=== PATIENT | female | born 1955 | race Caucasian/White ===

== ENCOUNTER 2016-09-23 20:27 | Emergency (ER) | payer OTHER ==
[~2016-09-23] VITALS: Ht 172.7 cm; Wt 58.9 kg
[~2016-09-23 20:27] MED LIST: AMOX1TAB64 PO; CANA100T PO; GABA300C10 PO; INSU100C SQ-INSULIN; INSU100I18 SQ-INSULIN; INSU100I28 SQ-INSULIN; INSU100V5 SQ-INSULIN; INSU100V8 SQ; LACT20SO13 PO; LEVO25TA2 PO; METF10002 PO; OXYC5CAP4 PO; PANT40TA5 PO; POTA20PA8 PO; RIFA550T PO; ZINC220C5 PO
[2016-09-23 20:45] VITALS: BP 112/68
[2016-09-23 22:31] LABS: ASPARTATE AMINO TRANSFERASE 19 U/L (15-37); BLOOD UREA NITROGEN 6 mg/dL (7-18)
[2016-09-23 22:43] LABS: DIFF TOTAL CELLS COUNTED 100 CELL DIFF
[2016-09-23 22:46] LABS: VERIFY COUNTS? YES
[2016-09-23 22:47] LABS: ANISOCYTOSIS 1+; MICROCYTOSIS 2+; OVALOCYTES 1+
[2016-09-23 22:48] LABS: POLYCHROMASIA 1+
== END 2016-09-24 00:22 | disposition left against medical advice (07) ==
LOC: ED 23:59
DX: G89.29 Other chronic pain (principal); R10.84 Generalized abdominal pain; R19.7 Diarrhea, unspecified; D64.9 Anemia, unspecified; E07.9 Disorder of thyroid, unspecified; E11.9 Type 2 diabetes mellitus without complications; K74.60 Unspecified cirrhosis of liver
CPT/HCPCS: 36415; 80053; 83690; 85025; 85610; 99284

== ENCOUNTER 2016-09-24 17:40 | Emergency (ER) | payer OTHER ==
[2016-09-24] VITALS (9 sets, daily range): BP systolic 94–104; BP diastolic 45–59
[~2016-09-24] VITALS: Ht 172.7 cm; Wt 58.2 kg
[2016-09-24] MEDS ORDERED: SODIUM CHLORIDE 0.9% 1,000 ML IV ONE (18:22)
[2016-09-24] MEDS ORDERED: PANTOPRAZOLE 80 MG in SODIUM CHLORIDE 0.9% 100 ML IV SCH (18:22)
[2016-09-24] MEDS ORDERED: PANTOPRAZOLE 80 MG in SODIUM CHLORIDE 0.9% 50 ML IVPB ONE (18:22)
[2016-09-24] MEDS ORDERED: SODIUM CHLORIDE FLUSH 10ML SYR IVF ONE (18:30)
[2016-09-24 18:51] LABS: BLOOD UREA NITROGEN 8 mg/dL (7-18)
[2016-09-24 18:54] LABS: ASPARTATE AMINO TRANSFERASE 21 U/L (15-37)
[2016-09-24 19:15] LABS: ANISOCYTOSIS 1+; HYPOCHROMIA 2+; MICROCYTOSIS 3+; POLYCHROMASIA 1+
[2016-09-24 19:16] LABS: ACANTHOCYTES 1+
[2016-09-24 19:17] LABS: LARGE PLATELETS 1+; OVALOCYTES 2+
[2016-09-24] MEDS ORDERED: PANTOPRAZOLE 40 MG IV IVP ONE (19:30)
[2016-09-24] MEDS ORDERED: IBUPROFEN 200 MG TABLET ONE (19:32)
[2016-09-24] MEDS ORDERED: PANTOPRAZOLE 40 MG IV ONE (19:44)
[2016-09-24] MEDS ORDERED: INSULIN REGULAR 100 UNITS/ML, 3ML VIAL ONE (19:46)
[2016-09-24] MEDS ORDERED: INSULIN REGULAR 100 UNITS/ML, 3ML VIAL SQ-INSULIN ONE (20:00)
[2016-09-24] MEDS ORDERED: IBUPROFEN 200 MG TABLET PO ONE (20:00)
[2016-09-24] MEDS ORDERED: OMNIPAQUE 350 MG/ML, 100ML BOTTLE ONE (23:24)
== END 2016-09-24 22:44 | disposition home or self-care (01) ==
LOC: ED 19:20
DX: R10.13 Epigastric pain (principal); R11.2 Nausea with vomiting, unspecified; R19.7 Diarrhea, unspecified; D50.9 Iron deficiency anemia, unspecified; E11.65 Type 2 diabetes mellitus with hyperglycemia
CPT/HCPCS: 36415; 74177; 80053; 80307; 82140; 83690; 85025; 85610; 85730; 86850; 86900; 86923; 96372; 96374; 99285; C9113; P9016; Q9967

== ENCOUNTER 2016-12-28 11:52 | Inpatient (IN) | payer OTHER ==
[~2016-12-28] VITALS: Ht 170.2 cm; Wt 61.8 kg
[~2016-12-28 11:52] MED LIST changes: +OXYC5CAP2 PO; -OXYC5CAP4 PO; +POTA20PA25 PO; -POTA20PA8 PO; -RIFA550T PO; +RIFA550T4 PO
[2016-12-28] MEDS ORDERED: ASPIRIN 81 MG TABLET CHEW PO ONE (12:30)
[2016-12-28] MEDS ORDERED: SODIUM CHLORIDE 0.9% 1,000ML IVBOLUS ONE ×3 (12:30→22:30)
[2016-12-28] MEDS ORDERED: SODIUM CHLORIDE FLUSH 10ML SYR IVF ONE (12:30)
[2016-12-28] MEDS ORDERED: ASPIRIN 81 MG TABLET CHEW ONE (12:36)
[2016-12-28 12:53] LABS: HEMATOCRIT 26.8 % (34.6-47.8); WHITE BLOOD COUNT 3.4 x10^3/uL (3.4-10)
[2016-12-28 13:01] LABS: BLOOD UREA NITROGEN 18 mg/dL (7-18)
[2016-12-28 13:02] LABS: ASPARTATE AMINO TRANSFERASE 17 U/L (15-37)
[2016-12-28] MEDS ORDERED: SPIR50TA2 PO (13:03)
[2016-12-28 13:06] LABS: IS PT STATUS REG ER OR PRE ER? YES
[2016-12-28 13:13] LABS: ANISOCYTOSIS 1+; HYPOCHROMIA 1+; MICROCYTOSIS 2+
[2016-12-28 13:14] LABS: OVALOCYTES 1+
[2016-12-28 15:10] LABS: PH, VENOUS 7.429 pH (7.320-7.420)
[2016-12-28] MEDS ORDERED: SODIUM CHLORIDE 0.9% 1,000 ML IV ONE (16:28)
[2016-12-28] MEDS ORDERED: SODIUM CHLORIDE FLUSH 10ML SYR IVF PRN (16:30)
[2016-12-28] MEDS ORDERED: ONDANSETRON 2MG/ML, 2ML IVPush PRN (17:00)
[2016-12-28] MEDS ORDERED: INSULIN ASPART 100 UNITS/ML, PEN SQ-INSULIN SCH ×2 (17:00→19:30)
[2016-12-28 17:30] LABS: ASPARTATE AMINO TRANSFERASE 14 U/L (15-37); BLOOD UREA NITROGEN 15 mg/dL (7-18)
[2016-12-28 17:47] LABS: HEMATOCRIT 22.2 % (34.6-47.8); HEMOGLOBIN 6.6 g/dL (11.7-16.4); WHITE BLOOD COUNT 2.6 x10^3/uL (3.4-10)
[2016-12-28] MEDS: INSULIN ASPART 100 UNITS/ML, PEN SQ-INSULIN SCH ×2 (17:52→22:14)
[2016-12-28 17:57] LABS: ANISOCYTOSIS 1+; HYPOCHROMIA 1+; MICROCYTOSIS 2+; OVALOCYTES 1+
[2016-12-28 17:58] LABS: POLYCHROMASIA 1+
[2016-12-28 18:47] VITALS: BP 107/39
[2016-12-28] MEDS: LACTULOSE 20 GM/30 ML UDC PO SCH (19:46)
[2016-12-28] MEDS: RIFAXIMIN 550 MG TABLET PO SCH (19:46)
[2016-12-28] MEDS: POTASSIUM PHOSPHATE IV SCH (19:47)
[2016-12-28] MEDS: SODIUM CHLORIDE 0.9% IV SCH (19:47)
[2016-12-28] MEDS: POTASSIUM CHLORIDE IV SCH (19:47)
[2016-12-28] MEDS ORDERED: INSULIN ASPART 100 UNITS/ML, PEN SQ-INSULIN ONE ×2 (20:00→20:30)
[2016-12-28 20:38] VITALS: BP 98/52
[2016-12-28] MEDS ORDERED: INSULIN DETEMIR 100 UNITS/ML, PEN SQ-INSULIN SCH (21:00)
[2016-12-28 21:10] VITALS: BP 91/48
[2016-12-28 23:00] VITALS: BP 94/52
[2016-12-28 23:44] VITALS: BP 98/50
[2016-12-29] VITALS (10 sets, daily range): BP systolic 93–111; BP diastolic 45–63
[2016-12-29] MEDS ORDERED: INSULIN ASPART 100 UNITS/ML, PEN SQ-INSULIN SCH ×5 (01:30→17:30)
[2016-12-29 05:27] LABS: BLOOD UREA NITROGEN 13 mg/dL (7-18)
[2016-12-29 05:29] LABS: HEMATOCRIT 27.8 % (34.6-47.8); HEMOGLOBIN 8.7 g/dL (11.7-16.4); WHITE BLOOD COUNT 3.6 x10^3/uL (3.4-10)
[2016-12-29] MEDS: LACTULOSE 20 GM/30 ML UDC PO SCH ×4 (05:47→21:26)
[2016-12-29] MEDS: LEVOTHYROXINE 25 MCG TABLET PO SCH (05:47)
[2016-12-29 06:12] LABS: DIFF TOTAL CELLS COUNTED 100 CELL DIFF
[2016-12-29 06:15] LABS: ANISOCYTOSIS 1+; HYPOCHROMIA 1+; MICROCYTOSIS 2+; OVALOCYTES 1+; POLYCHROMASIA 1+; VERIFY COUNTS? YES
[2016-12-29 06:18] LABS: SPHEROCYTES 1+
[2016-12-29] MEDS: INSULIN ASPART 100 UNITS/ML, PEN SQ-INSULIN SCH ×4 (08:10→21:00)
[2016-12-29] MEDS: RIFAXIMIN 550 MG TABLET PO SCH ×2 (08:10→21:26)
[2016-12-29] MEDS: INSULIN DETEMIR 100 UNITS/ML, PEN SQ-INSULIN SCH ×2 (11:52→17:35)
[2016-12-29] MEDS ORDERED: SODIUM CHLORIDE 0.9% 1,000 ML IV SCH (17:30)
[2016-12-29 17:50] LABS: IS PT STATUS REG ER OR PRE ER? NO
[2016-12-29] MEDS ORDERED: OMNIPAQUE 350 MG/ML, 100ML BOTTLE ONE (18:27)
[2016-12-29] MEDS ORDERED: INSULIN ASPART 100 UNITS/ML, PEN SQ-INSULIN ONE ×3 (21:00→21:30)
[2016-12-30 01:07] VITALS: BP 117/39
[2016-12-30] MEDS: POTASSIUM CHLORIDE IV SCH (01:50)
[2016-12-30] MEDS: SODIUM CHLORIDE 0.9% IV SCH (01:50)
[2016-12-30] MEDS: POTASSIUM PHOSPHATE IV SCH (01:50)
[2016-12-30] MEDS: LACTULOSE 20 GM/30 ML UDC PO SCH ×4 (05:56→21:16)
[2016-12-30] MEDS: LEVOTHYROXINE 25 MCG TABLET PO SCH (05:56)
[2016-12-30] MEDS: INSULIN DETEMIR 100 UNITS/ML, PEN SQ-INSULIN SCH (06:28)
[2016-12-30 06:31] LABS: OCCBLD OBC PASS
[2016-12-30 08:23] VITALS: BP 108/62
[2016-12-30] MEDS ORDERED: INSULIN ASPART 100 UNITS/ML, PEN SQ-INSULIN ONE ×4 (08:30→22:00)
[2016-12-30] MEDS: INSULIN ASPART 100 UNITS/ML, PEN SQ-INSULIN SCH ×4 (08:45→21:00)
[2016-12-30] MEDS: RIFAXIMIN 550 MG TABLET PO SCH ×2 (08:45→21:16)
[2016-12-30 09:29] LABS: HEMATOCRIT 29.7 % (34.6-47.8); HEMOGLOBIN 9.2 g/dL (11.7-16.4)
[2016-12-30 09:38] LABS: BLOOD UREA NITROGEN 7 mg/dL (7-18)
[2016-12-30 09:44] LABS: WHITE BLOOD COUNT 6.8 x10^3/uL (3.4-10)
[2016-12-30 09:47] LABS: ANISOCYTOSIS 1+
[2016-12-30 09:48] LABS: HYPOCHROMIA 1+; MICROCYTOSIS 2+; OVALOCYTES 1+; POLYCHROMASIA 1+
[2016-12-30 13:27] VITALS: BP 105/62
[2016-12-30] MEDS: OXYcodone IR 5MG TABLET PO PRN ×2 (16:50→22:50)
[2016-12-30] MEDS ORDERED: INSULIN DETEMIR 100 UNITS/ML, PEN SQ-INSULIN SCH (18:00)
[2016-12-30 20:00] VITALS: BP 107/55
[2016-12-30] MEDS: SPIRONOLACTONE 50 MG TABLET PO SCH (21:16)
[2016-12-31 00:59] VITALS: BP 102/56
[2016-12-31] MEDS: SODIUM CHLORIDE 0.9% IV SCH (01:28)
[2016-12-31] MEDS: POTASSIUM CHLORIDE IV SCH (01:28)
[2016-12-31] MEDS: POTASSIUM PHOSPHATE IV SCH (01:28)
[2016-12-31 06:25] LABS: BLOOD UREA NITROGEN 4 mg/dL (7-18)
[2016-12-31] MEDS: LEVOTHYROXINE 25 MCG TABLET PO SCH (06:40)
[2016-12-31] MEDS: LACTULOSE 20 GM/30 ML UDC PO SCH ×4 (06:40→20:28)
[2016-12-31] MEDS: INSULIN DETEMIR 100 UNITS/ML, PEN SQ-INSULIN SCH ×2 (06:41→17:30)
[2016-12-31] MEDS: INSULIN ASPART 100 UNITS/ML, PEN SQ-INSULIN SCH ×4 (07:00→21:00)
[2016-12-31 08:00] VITALS: BP 110/68
[2016-12-31] MEDS: RIFAXIMIN 550 MG TABLET PO SCH ×2 (08:18→20:29)
[2016-12-31] MEDS: FUROSEMIDE 40 MG TABLET PO SCH (08:19)
[2016-12-31] MEDS: SPIRONOLACTONE 50 MG TABLET PO SCH ×2 (08:19→20:28)
[2016-12-31] MEDS ORDERED: INSULIN ASPART 100 UNITS/ML, PEN SQ-INSULIN ONE ×4 (08:30→21:30)
[2016-12-31] MEDS: OXYcodone IR 5MG TABLET PO PRN ×2 (12:24→20:29)
[2016-12-31 13:26] VITALS: BP 107/57
[2016-12-31] MEDS ORDERED: INSULIN DETEMIR 100 UNITS/ML, PEN SQ-INSULIN SCH (18:00)
[2016-12-31 19:50] VITALS: BP 108/60
[2016-12-31] MEDS ORDERED: HYDROCORTISONE OINT 1%, 28GM TP PRN (21:30)
[2017-01-01 03:15] VITALS: BP 102/60
[2017-01-01 05:07] LABS: BLOOD UREA NITROGEN 5 mg/dL (7-18)
[2017-01-01] MEDS: LACTULOSE 20 GM/30 ML UDC PO SCH ×2 (06:06→11:51)
[2017-01-01] MEDS: LEVOTHYROXINE 25 MCG TABLET PO SCH (06:31)
[2017-01-01] MEDS: INSULIN DETEMIR 100 UNITS/ML, PEN SQ-INSULIN SCH (06:32)
[2017-01-01] MEDS: OXYcodone IR 5MG TABLET PO PRN (06:41)
[2017-01-01] MEDS: INSULIN ASPART 100 UNITS/ML, PEN SQ-INSULIN SCH ×2 (07:00→11:00)
[2017-01-01 07:52] VITALS: BP 105/64
[2017-01-01] MEDS: RIFAXIMIN 550 MG TABLET PO SCH (09:01)
[2017-01-01] MEDS: FUROSEMIDE 40 MG TABLET PO SCH (09:02)
[2017-01-01] MEDS: SPIRONOLACTONE 50 MG TABLET PO SCH (09:02)
[2017-01-01] MEDS ORDERED: FURO40TA6 PO (14:05)
[2017-01-01] MEDS ORDERED: INSU100I28 SQ-INSULIN (14:05)
[2017-01-01] MEDS ORDERED: INSU100C SQ-INSULIN (14:05)
[2017-01-01 14:18] VITALS: BP 94/50
== END 2017-01-01 16:05 | disposition home or self-care (01) | DRG 637 ==
LOC: ED 13:37 → EDIP 16:49 → 4WST 18:01
PROVIDERS: ADMIT Internal Medicine; ATTEND Internal Medicine
PROC: 30233N1 Transfusion of Nonautologous Red Blood Cells into Peripheral Vein, Percutaneous Approach (ICD-10-PCS; principal; 2016-12-28)
DX: E11.65 Type 2 diabetes mellitus with hyperglycemia (principal); E43 Unspecified severe protein-calorie malnutrition; K72.00 Acute and subacute hepatic failure without coma; K74.60 Unspecified cirrhosis of liver; E03.9 Hypothyroidism, unspecified; D50.9 Iron deficiency anemia, unspecified; Z68.21 Body mass index [BMI] 21.0-21.9, adult; Z90.710 Acquired absence of both cervix and uterus; Z91.018 Allergy to other foods
CPT/HCPCS: 36415; 71020; 71275; 80048; 80053; 81003; 82010; 82140; 82272; 82803; 82947; 82962; 83036; 83735; 84100; 84443; 84484; 85025; 85610; 86850; 86900; 86923; 93005; 96360; 96361; J1815; J3480; Q9967; J7030; P9016

== ENCOUNTER 2017-05-07 14:50 | Emergency (ER) | payer OTHER ==
[~2017-05-07] VITALS: Ht 170.2 cm; Wt 65.0 kg
[~2017-05-07 14:50] MED LIST changes: +FURO40TA6 PO; +SPIR50TA2 PO
[2017-05-07 14:57] VITALS: BP 98/60
== END 2017-05-07 18:38 ==
LOC: ED 15:00
DX: Z53.21 Procedure and treatment not carried out due to patient leaving prior to being seen by health care provider (principal)

== ENCOUNTER 2017-05-12 19:49 | Inpatient (IN) | payer OTHER ==
[~2017-05-12] VITALS: Ht 172.7 cm; Wt 74.3 kg
[2017-05-12 20:32] LABS: ALANINE AMINOTRANSFERASE 23 U/L (12-78); ALBUMIN 2.5 g/dL (3.4-5.0); ANION GAP 12 mmol/L (5-15); CALCIUM 8.3 mg/dL (8.5-10.1); CHLORIDE 97 mmol/L (98-107); CREATININE 1.07 mg/dL (0.55-1.02); MEAN CORPUSCULAR HEMOGLOBIN 18.7 pg (27.0-34.8); MEAN CORPUSCULAR HGB CONC 30.2 g/dL (32.4-35.8); MEAN CORPUSCULAR VOLUME 61.8 fL (80-100); MEAN PLATELET VOLUME 7.9 fL (7.4-10.4); PLATELET COUNT 168 x10^3/uL (130-400); RED BLOOD COUNT 2.88 x10^6/uL (3.82-5.3); RED CELL DISTRIBUTION WIDTH 21.7 % (9.6-15.2)
[2017-05-12 20:37] LABS: ALKALINE PHOSPHATASE 95 U/L (45-117); BILIRUBIN,TOTAL 1.9 mg/dL (0.2-1.0); TOTAL PROTEIN 6.5 g/dL (6.4-8.2); TROPONIN I < 0.015 ng/mL (0.000-0.045)
[2017-05-12] MEDS ORDERED: DEXTROSE 50%, 50ML SYRINGE ONE (20:43)
[2017-05-12] MEDS ORDERED: DEXTROSE 50%, 50ML SYRINGE IVPush ONE (21:00)
[2017-05-12 21:05] LABS: INTERNATIONAL NORMALIZED RATIO 1.49 (0.93-1.1); PROTHROMBIN TIME 15.4 Seconds (9.6-11.5)
[2017-05-12 21:21] LABS: BASOPHILS # (AUTO) 0.02 x10^3/uL (0-0.1); BASOPHILS % (AUTO) 0 % (0-1); EOSINOPHILS % (AUTO) 0 % (1-7); HEMOGRAM NOTE RECHECKED; LYMPHOCYTES # (AUTO) 0.78 x10^3/uL (1-3.4); LYMPHOCYTES % (AUTO) 13 % (22-44); MD MORPH REVIEW ONLY; MONOCYTES # (AUTO) 0.77 x10^3/uL (0.2-0.8); MONOCYTES % (AUTO) 13 % (2-9); NEUTROPHILS % (AUTO) 75 % (42-75)
[2017-05-12 21:24] LABS: <PLATELET ESTIMATE> ADEQUATE; ANISOCYTOSIS 2+; BASOPHILLIC STIPPLING 1+; HYPOCHROMIA 1+; MICROCYTOSIS 2+; OVALOCYTES 1+; POLYCHROMASIA 1+
[2017-05-12 21:25] LABS: <PLT MORPHOLOGY> NORMAL PLT MORPH
[2017-05-12] MEDS ORDERED: POTASSIUM CHLORIDE 20 MEQ TAB.ER.PRT PO ONE (21:30)
[2017-05-12] MEDS ORDERED: POTASSIUM CHLORIDE 20 MEQ TAB.ER.PRT ONE (21:45)
[2017-05-12] MEDS ORDERED: ONDANSETRON 2MG/ML, 2ML IVPush PRN (23:30)
[2017-05-12] MEDS ORDERED: DIPHENHYDRAMINE 50 MG/ML, 1ML ONE (23:37)
[2017-05-12] MEDS ORDERED: ONDANSETRON 2MG/ML, 2ML ONE (23:37)
[2017-05-13] VITALS (8 sets, daily range): BP systolic 95–106; BP diastolic 49–66
[2017-05-13] MEDS ORDERED: DIPHENHYDRAMINE 50 MG/ML, 1ML IVPush ONE
[2017-05-13] MEDS ORDERED: ONDANSETRON 2MG/ML, 2ML IVPush ONE
[2017-05-13] MEDS ORDERED: SODIUM CHLORIDE 0.9% 1,000 ML IV SCH (00:04)
[2017-05-13] MEDS ORDERED: DEXTROSE 50%, 50ML SYRINGE ONE (00:22)
[2017-05-13] MEDS ORDERED: BISACODYL 10 MG SUPP PR PRN (00:30)
[2017-05-13] MEDS ORDERED: D5%-0.9% NACL 1,000 ML IV SCH (00:30)
[2017-05-13] MEDS ORDERED: POLYETHYLENE GLYCOL 17 GM PACKET PO PRN (00:30)
[2017-05-13] MEDS ORDERED: ONDANSETRON 2MG/ML, 2ML IVPush PRN (00:30)
[2017-05-13] MEDS: LACTULOSE 20 GM/30 ML UDC PO SCH ×5 (00:30→20:12)
[2017-05-13] MEDS ORDERED: DEXTROSE 10% 1,000 ML IV SCH (01:00)
[2017-05-13] MEDS ORDERED: DEXTROSE 50%, 50ML SYRINGE IVPush ONE (01:30)
[2017-05-13 04:34] LABS: CULTURE INDICATED? YES; MICROSCOPIC INDICATED
[2017-05-13] MEDS ORDERED: GLUCAGON 1 MG ONE (04:35)
[2017-05-13 04:59] LABS: MEAN CORPUSCULAR HEMOGLOBIN 21.5 pg (27.0-34.8); MEAN CORPUSCULAR HGB CONC 31.3 g/dL (32.4-35.8); MEAN CORPUSCULAR VOLUME 68.5 fL (80-100); MEAN PLATELET VOLUME 7.7 fL (7.4-10.4); PLATELET COUNT 113 x10^3/uL (130-400); RED BLOOD COUNT 3.22 x10^6/uL (3.82-5.3); RED CELL DISTRIBUTION WIDTH 26.4 % (9.6-15.2)
[2017-05-13] MEDS ORDERED: GLUCAGON 1 MG IVPush PRN (05:00)
[2017-05-13 05:07] LABS: ALANINE AMINOTRANSFERASE 22 U/L (12-78); ALBUMIN 2.2 g/dL (3.4-5.0); ANION GAP 6 mmol/L (5-15); CALCIUM 8.1 mg/dL (8.5-10.1); CHLORIDE 98 mmol/L (98-107); CREATININE 0.99 mg/dL (0.55-1.02)
[2017-05-13 05:11] LABS: ALKALINE PHOSPHATASE 88 U/L (45-117); BILIRUBIN,TOTAL 2.9 mg/dL (0.2-1.0); TOTAL PROTEIN 5.9 g/dL (6.4-8.2); TROPONIN I 0.019 ng/mL (0.000-0.045)
[2017-05-13 05:53] LABS: MD YES
[2017-05-13 05:54] LABS: EOS#(MANUAL) 0.14 x10^3/uL (0.0-0.4); EOS% (MANUAL) 3 % (1-7); LYMPH#(MANUAL) 0.63 x10^3/uL (1-3.4); LYMPHS% (MANUAL) 14 % (22-44); MONOS#(MANUAL) 0.18 x10^3/uL (0.3-2.7); MONOS% (MANUAL) 4 % (2-9); NRBC % (MANUAL) 1 % (0-1); SEG#(MANUAL) 3.56 x10^3/uL (1.8-6.8); SEGS% (MANUAL) 79 % (42-75)
[2017-05-13 05:55] LABS: ANISOCYTOSIS 2+; MICROCYTOSIS 2+; POLYCHROMASIA 1+
[2017-05-13 05:56] LABS: <PLATELET ESTIMATE> DECREASED; <PLT MORPHOLOGY> NORMAL PLT MORPH
[2017-05-13] MEDS: LEVOTHYROXINE 50 MCG TABLET PO SCH (06:19)
[2017-05-13] MEDS ORDERED: POTASSIUM CHLORIDE 20 MEQ PACKET PO SCH (08:00)
[2017-05-13] MEDS: ZINC SULFATE 220 MG CAPSULE PO SCH (08:50)
[2017-05-13] MEDS: RIFAXIMIN 550 MG TABLET PO SCH ×2 (08:50→20:12)
[2017-05-13] MEDS: FERROUS SULFATE 325 MG TABLET PO SCH ×2 (08:50→16:22)
[2017-05-13] MEDS: SPIRONOLACTONE 50 MG TABLET PO SCH ×2 (08:51→20:12)
[2017-05-13] MEDS: SENNA/DOCUSATE TABLET PO SCH (08:51)
[2017-05-13] MEDS: ACETAMINOPHEN 325 MG TABLET PO PRN (15:10)
[2017-05-13] MEDS: INSULIN ASPART 100 UNITS/ML, PEN SQ-INSULIN SCH ×2 (17:34→21:57)
[2017-05-13] MEDS: SODIUM CHLORIDE 0.9% 1,000 ML IV SCH (17:35)
[2017-05-14] VITALS (11 sets, daily range): BP systolic 79–99; BP diastolic 38–58
[2017-05-14] MEDS: INSULIN ASPART 100 UNITS/ML, PEN SQ-INSULIN SCH ×6 (01:26→21:00)
[2017-05-14] MEDS: SODIUM CHLORIDE 0.9% 1,000 ML IV SCH (01:26)
[2017-05-14] MEDS: ACETAMINOPHEN 325 MG TABLET PO PRN (01:29)
[2017-05-14] MEDS: LACTULOSE 20 GM/30 ML UDC PO SCH ×4 (05:20→19:27)
[2017-05-14] MEDS: LEVOTHYROXINE 50 MCG TABLET PO SCH (05:20)
[2017-05-14 05:56] LABS: MEAN CORPUSCULAR HEMOGLOBIN 22.2 pg (27.0-34.8); MEAN CORPUSCULAR HGB CONC 31.5 g/dL (32.4-35.8); MEAN CORPUSCULAR VOLUME 70.5 fL (80-100); MEAN PLATELET VOLUME 9.6 fL (7.4-10.4); PLATELET COUNT 117 x10^3/uL (130-400); RED BLOOD COUNT 3.28 x10^6/uL (3.82-5.3); RED CELL DISTRIBUTION WIDTH 27.5 % (9.6-15.2)
[2017-05-14 06:29] LABS: BASOPHILS # (AUTO) 0.01 x10^3/uL (0-0.1); BASOPHILS % (AUTO) 0 % (0-1); EOSINOPHILS % (AUTO) 0 % (1-7); LYMPHOCYTES # (AUTO) 0.44 x10^3/uL (1-3.4); LYMPHOCYTES % (AUTO) 5 % (22-44); MD MORPH REVIEW ONLY; MONOCYTES # (AUTO) 0.55 x10^3/uL (0.2-0.8); MONOCYTES % (AUTO) 6 % (2-9); NEUTROPHILS % (AUTO) 89 % (42-75)
[2017-05-14 06:30] LABS: ANISOCYTOSIS 2+; MICROCYTOSIS 1+; OVALOCYTES 1+; POLYCHROMASIA 1+; SCHISTOCYTES 1+; TARGET CELLS 1+
[2017-05-14 06:31] LABS: <PLATELET ESTIMATE> DECREASED; <PLT MORPHOLOGY> NORMAL PLT MORPH; HYPOCHROMIA 1+
[2017-05-14] MEDS: ZINC SULFATE 220 MG CAPSULE PO SCH (09:18)
[2017-05-14] MEDS: SENNA/DOCUSATE TABLET PO SCH (09:19)
[2017-05-14] MEDS: RIFAXIMIN 550 MG TABLET PO SCH ×2 (09:19→19:27)
[2017-05-14] MEDS: SPIRONOLACTONE 50 MG TABLET PO SCH ×2 (09:19→19:27)
[2017-05-14] MEDS: FERROUS SULFATE 325 MG TABLET PO SCH (09:19)
[2017-05-14] MEDS ORDERED: INSULIN ASPART 100 UNITS/ML, PEN SQ-INSULIN ONE (09:30)
[2017-05-14] MEDS: INSULIN DETEMIR 100 UNITS/ML, PEN SQ-INSULIN SCH ×2 (11:13→21:00)
[2017-05-14] MEDS: NS + 20MEQ KCL 1,000 ML IV SCH (15:53)
[2017-05-14] MEDS: IRON SUCROSE COMPLEX 100MG/5ML IV SCH (15:53)
[2017-05-15] MEDS: INSULIN ASPART 100 UNITS/ML, PEN SQ-INSULIN SCH ×3 (01:00→09:50)
[2017-05-15] MEDS: NS + 20MEQ KCL 1,000 ML IV SCH (01:22)
[2017-05-15 02:43] VITALS: BP 95/53
[2017-05-15] MEDS: LACTULOSE 20 GM/30 ML UDC PO SCH ×2 (05:21→11:07)
[2017-05-15] MEDS: LEVOTHYROXINE 50 MCG TABLET PO SCH (05:21)
[2017-05-15 05:32] LABS: MEAN CORPUSCULAR HGB CONC 31.6 g/dL (32.4-35.8); MEAN CORPUSCULAR VOLUME 72.7 fL (80-100); MEAN PLATELET VOLUME 8.5 fL (7.4-10.4); PLATELET COUNT 115 x10^3/uL (130-400); RED CELL DISTRIBUTION WIDTH 27.6 % (9.6-15.2)
[2017-05-15 05:39] LABS: ALANINE AMINOTRANSFERASE 24 U/L (12-78); ALBUMIN 2.1 g/dL (3.4-5.0); ANION GAP 8 mmol/L (5-15); CALCIUM 7.9 mg/dL (8.5-10.1); CHLORIDE 103 mmol/L (98-107); CREATININE 1.14 mg/dL (0.55-1.02)
[2017-05-15 05:42] LABS: ALKALINE PHOSPHATASE 87 U/L (45-117); BILIRUBIN,TOTAL 2.9 mg/dL (0.2-1.0); TOTAL PROTEIN 5.5 g/dL (6.4-8.2)
[2017-05-15 05:56] LABS: BASOPHILS # (AUTO) 0.03 x10^3/uL (0-0.1); BASOPHILS % (AUTO) 1 % (0-1); EOSINOPHILS % (AUTO) 0 % (1-7); LYMPHOCYTES # (AUTO) 0.56 x10^3/uL (1-3.4); LYMPHOCYTES % (AUTO) 9 % (22-44); MD SCAN; MONOCYTES # (AUTO) 0.55 x10^3/uL (0.2-0.8); MONOCYTES % (AUTO) 9 % (2-9); NEUTROPHILS # (AUTO) 4.87 x10^3/uL (1.8-6.8); NEUTROPHILS % (AUTO) 81 % (42-75)
[2017-05-15] MEDS: ACETAMINOPHEN 325 MG TABLET PO PRN (07:50)
[2017-05-15 08:08] VITALS: BP 91/45
[2017-05-15] MEDS: INSULIN DETEMIR 100 UNITS/ML, PEN SQ-INSULIN SCH (09:27)
[2017-05-15] MEDS: SPIRONOLACTONE 50 MG TABLET PO SCH (09:28)
[2017-05-15] MEDS: SENNA/DOCUSATE TABLET PO SCH (09:29)
[2017-05-15] MEDS: IRON SUCROSE COMPLEX 100MG/5ML IV SCH (09:49)
[2017-05-15] MEDS: ZINC SULFATE 220 MG CAPSULE PO SCH (09:49)
[2017-05-15] MEDS: RIFAXIMIN 550 MG TABLET PO SCH (09:49)
[2017-05-15] MEDS ORDERED: INSULIN DETEMIR 100 UNITS/ML, PEN SQ-INSULIN SCH ×2 (10:00→21:00)
[2017-05-15] MEDS ORDERED: INSU100I28 SQ-INSULIN (11:08)
[2017-05-15] MEDS ORDERED: FERR-36 PO (11:09)
[2017-05-15 12:37] VITALS: BP 107/57
== END 2017-05-15 13:47 | disposition home health service (06) | DRG 811 ==
LOC: ED 22:30 → EDIP 23:24 → CCU 05-13 05:17 → 4NOR 05-13 13:07 → DCLOUNGE 05-15 12:15
PROVIDERS: ADMIT Internal Medicine; ATTEND Family Medicine
PROC: 30233N1 Transfusion of Nonautologous Red Blood Cells into Peripheral Vein, Percutaneous Approach (ICD-10-PCS; principal; 2017-05-12)
DX: D50.9 Iron deficiency anemia, unspecified (principal); E43 Unspecified severe protein-calorie malnutrition; Z76.82 Awaiting organ transplant status; D68.4 Acquired coagulation factor deficiency; E11.649 Type 2 diabetes mellitus with hypoglycemia without coma; I85.00 Esophageal varices without bleeding; E87.1 Hypo-osmolality and hyponatremia; E03.9 Hypothyroidism, unspecified; E11.65 Type 2 diabetes mellitus with hyperglycemia; E87.6 Hypokalemia; K72.90 Hepatic failure, unspecified without coma; K74.60 Unspecified cirrhosis of liver; Z79.4 Long term (current) use of insulin; Z90.710 Acquired absence of both cervix and uterus; F10.20 Alcohol dependence, uncomplicated; Z68.24 Body mass index [BMI] 24.0-24.9, adult
CPT/HCPCS: 36415; 36430; 70450; 71045; 80053; 81001; 82140; 82728; 82947; 82962; 83036; 83540; 83550; 83735; 84443; 84484; 85014; 85018; 85025; 85610; 86850; 86880; 86900; 86902; 86922; 86923; 87081; 87086; 93005; 96374; 96375; 96376; J1756; J1815; J2405; J3480; J7042; J1200; J1610; J7030; P9016

== ENCOUNTER 2017-06-03 08:58 | Inpatient (IN) | payer OTHER ==
[~2017-06-03] VITALS: Ht 167.6 cm; Wt 64.8 kg
[~2017-06-03 08:58] MED LIST changes: +FERR-51 PO
[2017-06-03] MEDS ORDERED: SODIUM CHLORIDE FLUSH 10ML SYR IVF ONE (09:30)
[2017-06-03] MEDS ORDERED: SODIUM CHLORIDE 0.9% 1,000ML IVBOLUS ONE ×3 (09:30→22:00)
[2017-06-03 10:02] LABS: MEAN CORPUSCULAR HGB CONC 31.7 g/dL (32.4-35.8); MEAN CORPUSCULAR VOLUME 75.8 fL (80-100); MEAN PLATELET VOLUME 9.2 fL (7.4-10.4); PLATELET COUNT 179 x10^3/uL (130-400); RED BLOOD COUNT 4.49 x10^6/uL (3.82-5.3); RED CELL DISTRIBUTION WIDTH 32.1 % (9.6-15.2)
[2017-06-03 10:14] LABS: ALANINE AMINOTRANSFERASE 31 U/L (12-78); ALBUMIN 2.6 g/dL (3.4-5.0); ANION GAP 18 mmol/L (5-15); CALCIUM 8.9 mg/dL (8.5-10.1); CHLORIDE 89 mmol/L (98-107); CREATININE 1.58 mg/dL (0.55-1.02)
[2017-06-03 10:16] LABS: ALKALINE PHOSPHATASE 148 U/L (45-117); BILIRUBIN,TOTAL 3.9 mg/dL (0.2-1.0)
[2017-06-03 10:17] LABS: INTERNATIONAL NORMALIZED RATIO 1.51 (0.93-1.1); PROTHROMBIN TIME 15.4 Seconds (9.6-11.5)
[2017-06-03 10:19] LABS: ACETAMINOPHEN < 2 mcg/mL (10-30); SALICYLATE LEVEL < 1.7 mg/dL (2.8-20.0)
[2017-06-03 10:20] LABS: MD YES
[2017-06-03 10:22] LABS: ANISOCYTOSIS 2+; BAND#(MANUAL) 0.23 x10^3/uL; BANDS%(MANUAL) 4 % (0-7); LYMPH#(MANUAL) 0.17 x10^3/uL (1-3.4); LYMPHS% (MANUAL) 3 % (22-44); MONOS% (MANUAL) 12 % (2-9); SEGS% (MANUAL) 81 % (42-75)
[2017-06-03 10:23] LABS: MICROCYTOSIS 2+
[2017-06-03 10:24] LABS: HYPOCHROMIA 1+; OVALOCYTES 1+; POLYCHROMASIA 1+; SCHISTOCYTES 1+
[2017-06-03 10:25] LABS: <PLATELET ESTIMATE> ADEQUATE
[2017-06-03 10:26] LABS: <PLT MORPHOLOGY> NORMAL PLT MORPH
[2017-06-03] MEDS ORDERED: LEVOFLOXACIN/PMX 750MG/150ML 150 ML IVPB ONE (10:30)
[2017-06-03] MEDS ORDERED: INSULIN REGULAR 100 UNITS/ML, 3ML VIAL IVPush ONE (10:30)
[2017-06-03 10:45] LABS: ACETONE, SERUM Negative (Negative)
[2017-06-03] MEDS ORDERED: LEVOFLOXACIN/PMX 750MG/150ML 150 ML ONE (10:50)
[2017-06-03] MEDS ORDERED: INSULIN REGULAR 100 UNITS/ML, 3ML VIAL ONE (10:51)
[2017-06-03 12:49] VITALS: BP 87/47
[2017-06-03] MEDS ORDERED: HYDROcodone/APAP 5/325 TABLET PO PRN (15:00)
[2017-06-03] MEDS ORDERED: morphine SULFATE 10 MG/ML, 1ML IVPush PRN (15:00)
[2017-06-03] MEDS ORDERED: CEFTRIAXONE PMX 2GM/50ML 50 ML IV SCH (15:00)
[2017-06-03] MEDS ORDERED: hydrALAzine 20 MG/ML, 1ML IVPush PRN (15:00)
[2017-06-03] MEDS ORDERED: LORazepam 2 MG/ML, 1ML ONE (15:30)
[2017-06-03] MEDS: CEFTRIAXONE 2,000 MG in SODIUM CHLORIDE 0.9% 50 ML IV SCH (15:34)
[2017-06-03] MEDS: LORazepam 2 MG/ML, 1ML IVPush PRN ×2 (15:34→22:10)
[2017-06-03] MEDS: LACTULOSE 20 GM/30 ML UDC PO SCH ×2 (16:00→20:29)
[2017-06-03] MEDS: FERROUS SULFATE 325 MG TABLET PO SCH ×2 (16:00→20:29)
[2017-06-03 16:30] VITALS: BP 121/61
[2017-06-03 16:32] LABS: MICROSCOPIC NOT IND
[2017-06-03 16:34] LABS: CULTURE INDICATED? NO
[2017-06-03 16:44] LABS: AMPHETAMINE SCREEN, URINE Negative (Negative); BARBITURATE SCREEN, URINE Negative (Negative); BENZODIAZEPINE SCREEN, URINE Negative (Negative); CANNABINOID SCREEN, URINE Negative (Negative); COCAINE SCREEN, URINE Negative (Negative); METHADONE SCREEN, URINE Negative (Negative); OPIATE SCREEN, URINE Positive (Negative)
[2017-06-03] MEDS ORDERED: INSULIN DETEMIR 100 UNITS/ML, PEN SQ-INSULIN ONE (17:00)
[2017-06-03] MEDS ORDERED: SODIUM CHLORIDE 0.9% 1,000 ML IV SCH (17:00)
[2017-06-03] MEDS ORDERED: POTASSIUM CHLORIDE 20 MEQ PACKET PO SCH (17:00)
[2017-06-03] MEDS ORDERED: ALBUMIN HUMAN 25% 50 ML IV ONE (17:00)
[2017-06-03] MEDS: INSULIN LISPRO 100 UNITS/ML, PEN SQ-INSULIN SCH ×2 (17:14→21:00)
[2017-06-03] MEDS: AZITHROMYCIN 500 MG in SODIUM CHLORIDE 0.9% 250 ML IV SCH (17:14)
[2017-06-03 19:36] VITALS: BP_SYST 71; BP_SYST 81; BP_SYST 92; BP_DIAS 32; BP_DIAS 33; BP_DIAS 37
[2017-06-03] MEDS: RIFAXIMIN 550 MG TABLET PO SCH (20:30)
[2017-06-03] MEDS ORDERED: INSULIN DETEMIR 100 UNITS/ML, PEN SQ-INSULIN SCH (21:00)
[2017-06-03] MEDS ORDERED: SPIRONOLACTONE 50 MG TABLET PO SCH (21:00)
[2017-06-03] MEDS ORDERED: INSULIN LISPRO 100 UNITS/ML, PEN SQ-INSULIN ONE (22:00)
[2017-06-03 22:02] LABS: ALBUMIN 2.1 g/dL (3.4-5.0); ANION GAP 27 mmol/L (5-15); CALCIUM 7.7 mg/dL (8.5-10.1); CHLORIDE 92 mmol/L (98-107); CREATININE 2.35 mg/dL (0.55-1.02)
[2017-06-04] MEDS: SODIUM CHLORIDE 0.9% 1,000 ML IV SCH ×3 (00:03→04:55)
[2017-06-04 00:09] LABS: ACETONE, SERUM Negative (Negative)
[2017-06-04] MEDS: REGULAR INSULIN 62.5 UNITS in SODIUM CHLORIDE 0.9% 249.375 ML IV PRN ×2 (00:18→06:37)
[2017-06-04 00:26] LABS: ANION GAP 21 mmol/L (5-15); CALCIUM 7.4 mg/dL (8.5-10.1); CHLORIDE 94 mmol/L (98-107); CREATININE 2.42 mg/dL (0.55-1.02)
[2017-06-04] MEDS ORDERED: SODIUM CHLORIDE 0.9% 1,000ML IVBOLUS ONE (01:00)
[2017-06-04] MEDS ORDERED: NALOXONE 0.4 MG/ML, 1ML IVPush ONE (02:30)
[2017-06-04] MEDS ORDERED: NOREPINEPHRINE 4 MG in SODIUM CHLORIDE 0.9% 246 ML IV PRN ×2 (02:30→12:00)
[2017-06-04 04:56] LABS: ALANINE AMINOTRANSFERASE 29 U/L (12-78); ALBUMIN 2.2 g/dL (3.4-5.0); ANION GAP 16 mmol/L (5-15); CALCIUM 7.1 mg/dL (8.5-10.1); CHLORIDE 99 mmol/L (98-107)
[2017-06-04 05:04] LABS: ALKALINE PHOSPHATASE 94 U/L (45-117); BILIRUBIN,TOTAL 2.1 mg/dL (0.2-1.0); CREATININE 2.39 mg/dL (0.55-1.02)
[2017-06-04] MEDS: LACTULOSE 20 GM/30 ML UDC PO SCH ×4 (05:20→21:11)
[2017-06-04] MEDS: LEVOTHYROXINE 50 MCG TABLET PO SCH (06:00)
[2017-06-04 06:01] LABS: MEAN CORPUSCULAR HEMOGLOBIN 24.1 pg (27.0-34.8); MEAN CORPUSCULAR HGB CONC 31.7 g/dL (32.4-35.8); MEAN CORPUSCULAR VOLUME 76.2 fL (80-100); MEAN PLATELET VOLUME 7.8 fL (7.4-10.4); PLATELET COUNT 187 x10^3/uL (130-400); RED BLOOD COUNT 3.63 x10^6/uL (3.82-5.3); RED CELL DISTRIBUTION WIDTH 33.2 % (9.6-15.2)
[2017-06-04 06:16] LABS: BASOPHILS # (AUTO) 0.08 x10^3/uL (0-0.1); BASOPHILS % (AUTO) 1 % (0-1); EOSINOPHILS % (AUTO) 0 % (1-7); LYMPHOCYTES # (AUTO) 0.75 x10^3/uL (1-3.4); LYMPHOCYTES % (AUTO) 7 % (22-44); MD SCAN; MONOCYTES # (AUTO) 0.83 x10^3/uL (0.2-0.8); MONOCYTES % (AUTO) 7 % (2-9); NEUTROPHILS # (AUTO) 9.73 x10^3/uL (1.8-6.8); NEUTROPHILS % (AUTO) 86 % (42-75)
[2017-06-04] MEDS ORDERED: PANTOPROZOLE 40MG TABLET PO SCH (07:30)
[2017-06-04] MEDS ORDERED: MAGNESIUM SULFATE PMX 4GM/100M 100 ML IV ONE (08:00)
[2017-06-04] MEDS ORDERED: POTASSIUM CHLORIDE 20 MEQ TAB.ER.PRT PO ONE (08:00)
[2017-06-04] MEDS: FERROUS SULFATE 325 MG TABLET PO SCH ×3 (08:24→21:11)
[2017-06-04] MEDS: RIFAXIMIN 550 MG TABLET PO SCH ×2 (08:24→21:11)
[2017-06-04] MEDS: ZINC SULFATE 220 MG CAPSULE PO SCH (08:24)
[2017-06-04] MEDS ORDERED: FUROSEMIDE 40 MG TABLET PO SCH (09:00)
[2017-06-04] MEDS: INSULIN LISPRO 100 UNITS/ML, PEN SQ-INSULIN SCH ×4 (09:03→21:12)
[2017-06-04] MEDS: INSULIN GLARGINE 100 UNITS/ML, PEN SQ-INSULIN SCH (09:04)
[2017-06-04] MEDS: CEFTRIAXONE 2,000 MG in SODIUM CHLORIDE 0.9% 50 ML IV SCH (14:55)
[2017-06-04] MEDS: AZITHROMYCIN 500 MG in SODIUM CHLORIDE 0.9% 250 ML IV SCH (15:40)
[2017-06-05] MEDS: SODIUM CHLORIDE 0.9% 1,000 ML IV SCH ×4 (01:46→19:57)
[2017-06-05 04:00] VITALS: BP 112/59
[2017-06-05 04:32] LABS: ANION GAP 10 mmol/L (5-15); CALCIUM 7.7 mg/dL (8.5-10.1); CHLORIDE 103 mmol/L (98-107)
[2017-06-05 04:39] LABS: MEAN CORPUSCULAR HEMOGLOBIN 24.5 pg (27.0-34.8); MEAN CORPUSCULAR HGB CONC 32.3 g/dL (32.4-35.8); MEAN CORPUSCULAR VOLUME 75.9 fL (80-100); MEAN PLATELET VOLUME 8.8 fL (7.4-10.4); PLATELET COUNT 148 x10^3/uL (130-400); RED CELL DISTRIBUTION WIDTH 31.9 % (9.6-15.2)
[2017-06-05 05:21] LABS: BASOPHILS # (AUTO) 0.03 x10^3/uL (0-0.1); BASOPHILS % (AUTO) 0 % (0-1); EOSINOPHILS % (AUTO) 0 % (1-7); LYMPHOCYTES # (AUTO) 0.52 x10^3/uL (1-3.4); LYMPHOCYTES % (AUTO) 6 % (22-44); MD SCAN; MONOCYTES # (AUTO) 0.67 x10^3/uL (0.2-0.8); MONOCYTES % (AUTO) 8 % (2-9); NEUTROPHILS # (AUTO) 7.65 x10^3/uL (1.8-6.8); NEUTROPHILS % (AUTO) 86 % (42-75)
[2017-06-05] MEDS: LEVOTHYROXINE 50 MCG TABLET PO SCH (05:49)
[2017-06-05] MEDS: LACTULOSE 20 GM/30 ML UDC PO SCH ×4 (05:49→21:05)
[2017-06-05] MEDS: INSULIN LISPRO 100 UNITS/ML, PEN SQ-INSULIN SCH ×4 (06:51→19:57)
[2017-06-05 08:06] VITALS: BP 108/56
[2017-06-05] MEDS: RIFAXIMIN 550 MG TABLET PO SCH ×2 (08:30→21:05)
[2017-06-05] MEDS: ZINC SULFATE 220 MG CAPSULE PO SCH (08:31)
[2017-06-05] MEDS: FERROUS SULFATE 325 MG TABLET PO SCH ×3 (08:31→21:04)
[2017-06-05] MEDS: INSULIN GLARGINE 100 UNITS/ML, PEN SQ-INSULIN SCH (08:32)
[2017-06-05] MEDS: CEFTRIAXONE 2,000 MG in SODIUM CHLORIDE 0.9% 50 ML IV SCH (15:16)
[2017-06-05 15:17] VITALS: BP 100/54
[2017-06-05] MEDS: AZITHROMYCIN 500 MG in SODIUM CHLORIDE 0.9% 250 ML IV SCH (15:48)
[2017-06-05 20:00] VITALS: BP 100/55
[2017-06-05] MEDS ORDERED: CALCIUM CARBONATE 500 MG TAB.CHEW PO PRN (21:00)
[2017-06-05] MEDS ORDERED: CALCIUM CARBONATE 500 MG TAB.CHEW ONE (21:03)
[2017-06-05 22:51] VITALS: BP 94/52
[2017-06-06] MEDS: INSULIN LISPRO 100 UNITS/ML, PEN SQ-INSULIN SCH ×6 (00:10→20:14)
[2017-06-06 01:27] VITALS: BP 91/46
[2017-06-06] MEDS: LEVOTHYROXINE 50 MCG TABLET PO SCH (04:58)
[2017-06-06] MEDS: SODIUM CHLORIDE 0.9% 1,000 ML IV SCH ×2 (04:58→12:30)
[2017-06-06] MEDS: LACTULOSE 20 GM/30 ML UDC PO SCH ×4 (04:58→20:15)
[2017-06-06 05:09] LABS: MEAN CORPUSCULAR HEMOGLOBIN 24.5 pg (27.0-34.8); MEAN CORPUSCULAR HGB CONC 32.5 g/dL (32.4-35.8); MEAN CORPUSCULAR VOLUME 75.2 fL (80-100); MEAN PLATELET VOLUME 8.5 fL (7.4-10.4); PLATELET COUNT 122 x10^3/uL (130-400); RED BLOOD COUNT 3.75 x10^6/uL (3.82-5.3); RED CELL DISTRIBUTION WIDTH 32.2 % (9.6-15.2)
[2017-06-06 05:14] LABS: CHLORIDE 106 mmol/L (98-107)
[2017-06-06 05:41] LABS: ALANINE AMINOTRANSFERASE 28 U/L (12-78); ALBUMIN 2.2 g/dL (3.4-5.0); ALKALINE PHOSPHATASE 97 U/L (45-117); ANION GAP 9 mmol/L (5-15); BILIRUBIN,TOTAL 2.5 mg/dL (0.2-1.0); CALCIUM 7.6 mg/dL (8.5-10.1); CREATININE 0.79 mg/dL (0.55-1.02)
[2017-06-06 05:50] LABS: BASOPHILS # (AUTO) 0.01 x10^3/uL (0-0.1); BASOPHILS % (AUTO) 0 % (0-1); EOSINOPHILS % (AUTO) 0 % (1-7); LYMPHOCYTES # (AUTO) 0.39 x10^3/uL (1-3.4); LYMPHOCYTES % (AUTO) 11 % (22-44); MD SCAN; MONOCYTES # (AUTO) 0.39 x10^3/uL (0.2-0.8); MONOCYTES % (AUTO) 11 % (2-9); NEUTROPHILS # (AUTO) 2.91 x10^3/uL (1.8-6.8); NEUTROPHILS % (AUTO) 79 % (42-75)
[2017-06-06 06:55] LABS: TROPONIN I 0.423 ng/mL (0.000-0.045)
[2017-06-06 07:59] VITALS: BP 98/61
[2017-06-06] MEDS ORDERED: INSULIN GLARGINE 100 UNITS/ML, PEN SQ-INSULIN SCH ×2 (09:00→21:00)
[2017-06-06] MEDS: ZINC SULFATE 220 MG CAPSULE PO SCH (09:10)
[2017-06-06] MEDS: RIFAXIMIN 550 MG TABLET PO SCH ×2 (09:10→20:15)
[2017-06-06] MEDS: FERROUS SULFATE 325 MG TABLET PO SCH ×3 (09:10→20:14)
[2017-06-06] MEDS ORDERED: POTASSIUM CHLORIDE 20 MEQ TAB.ER.PRT PO ONE (12:00)
[2017-06-06] MEDS: DOXYCYCLINE 100MG TABLET PO SCH ×2 (12:15→20:14)
[2017-06-06] MEDS ORDERED: FUROSEMIDE 40 MG/4 ML IV ONE (12:30)
[2017-06-06] MEDS: FUROSEMIDE 40 MG TABLET PO SCH (12:34)
[2017-06-06] MEDS ORDERED: SPIRONOLACTONE 100 MG TABLET ONE (12:37)
[2017-06-06] MEDS: SPIRONOLACTONE 50 MG TABLET PO SCH ×2 (12:43→20:14)
[2017-06-06 12:53] LABS: TROPONIN I 0.344 ng/mL (0.000-0.045)
[2017-06-06 15:33] VITALS: BP 103/64
[2017-06-06] MEDS: CEFTRIAXONE 2,000 MG in SODIUM CHLORIDE 0.9% 50 ML IV SCH (15:37)
[2017-06-06] MEDS: POTASSIUM CHLORIDE 20 MEQ TAB.ER.PRT PO SCH (16:42)
[2017-06-06] MEDS ORDERED: DIGOXIN 0.25 MG/ML, 2ML IVPush ONE (18:00)
[2017-06-06 18:32] VITALS: BP 100/65
[2017-06-06 19:10] LABS: TROPONIN I 0.307 ng/mL (0.000-0.045)
[2017-06-06] MEDS: INSULIN GLARGINE 100 UNITS/ML, PEN SQ-INSULIN SCH (20:28)
[2017-06-07] MEDS: INSULIN LISPRO 100 UNITS/ML, PEN SQ-INSULIN SCH ×6 (00:08→20:10)
[2017-06-07 00:16] VITALS: BP 99/63
[2017-06-07 05:09] LABS: MEAN CORPUSCULAR HEMOGLOBIN 24.1 pg (27.0-34.8); MEAN CORPUSCULAR HGB CONC 31.7 g/dL (32.4-35.8); MEAN PLATELET VOLUME 8.2 fL (7.4-10.4); PLATELET COUNT 110 x10^3/uL (130-400); RED BLOOD COUNT 3.53 x10^6/uL (3.82-5.3); RED CELL DISTRIBUTION WIDTH 31.8 % (9.6-15.2)
[2017-06-07 05:14] LABS: CHLORIDE 106 mmol/L (98-107)
[2017-06-07 05:22] LABS: ALANINE AMINOTRANSFERASE 24 U/L (12-78); ALBUMIN 1.8 g/dL (3.4-5.0); ALKALINE PHOSPHATASE 90 U/L (45-117); ANION GAP 7 mmol/L (5-15); BILIRUBIN,TOTAL 2.5 mg/dL (0.2-1.0); CALCIUM 7.2 mg/dL (8.5-10.1)
[2017-06-07] MEDS: LEVOTHYROXINE 50 MCG TABLET PO SCH (05:34)
[2017-06-07] MEDS: LACTULOSE 20 GM/30 ML UDC PO SCH ×3 (05:35→18:45)
[2017-06-07 05:50] LABS: BASOPHILS # (AUTO) 0.01 x10^3/uL (0-0.1); BASOPHILS % (AUTO) 0 % (0-1); EOSINOPHILS % (AUTO) 0 % (1-7); LYMPHOCYTES # (AUTO) 0.44 x10^3/uL (1-3.4); LYMPHOCYTES % (AUTO) 15 % (22-44); MD MORPH REVIEW ONLY; MONOCYTES # (AUTO) 0.37 x10^3/uL (0.2-0.8); MONOCYTES % (AUTO) 12 % (2-9); NEUTROPHILS # (AUTO) 2.15 x10^3/uL (1.8-6.8); NEUTROPHILS % (AUTO) 72 % (42-75)
[2017-06-07 05:52] LABS: HYPOCHROMIA 1+; OVALOCYTES 1+; POLYCHROMASIA 1+; TEAR DROPS 1+
[2017-06-07 05:53] LABS: MICROCYTOSIS 2+
[2017-06-07 05:56] LABS: ANISOCYTOSIS 2+; SCHISTOCYTES 2+
[2017-06-07 05:57] LABS: <PLATELET ESTIMATE> DECREASED; <PLT MORPHOLOGY> NORMAL PLT MORPH
[2017-06-07 07:12] VITALS: BP 103/66
[2017-06-07] MEDS: DOXYCYCLINE 100MG TABLET PO SCH ×2 (08:50→19:58)
[2017-06-07] MEDS: POTASSIUM CHLORIDE 20 MEQ TAB.ER.PRT PO SCH (08:51)
[2017-06-07] MEDS: FUROSEMIDE 40 MG TABLET PO SCH (08:53)
[2017-06-07] MEDS: RIFAXIMIN 550 MG TABLET PO SCH ×2 (08:54→19:58)
[2017-06-07] MEDS: SPIRONOLACTONE 50 MG TABLET PO SCH ×2 (08:55→19:58)
[2017-06-07] MEDS: FERROUS SULFATE 325 MG TABLET PO SCH ×3 (08:56→19:58)
[2017-06-07] MEDS: ZINC SULFATE 220 MG CAPSULE PO SCH (08:57)
[2017-06-07] MEDS ORDERED: POTASSIUM PHOSPHATE 44 MEQ in SODIUM CHLORIDE 0.9% 500 ML IV ONE (09:00)
[2017-06-07] MEDS: INSULIN GLARGINE 100 UNITS/ML, PEN SQ-INSULIN SCH ×2 (09:02→20:10)
[2017-06-07] MEDS ORDERED: OMNIPAQUE 350 MG/ML, 100ML BOTTLE ONE (10:04)
[2017-06-07] MEDS ORDERED: FUROSEMIDE 40 MG/4 ML IV ONE (11:30)
[2017-06-07 15:06] VITALS: BP 101/63
[2017-06-07] MEDS: CEFTRIAXONE 2,000 MG in SODIUM CHLORIDE 0.9% 50 ML IV SCH (16:53)
[2017-06-07] MEDS: METOPROLOL SUCCINATE 25 MG TAB.ER.24H PO SCH (20:01)
[2017-06-07 20:11] VITALS: BP 94/57
[2017-06-08] MEDS: INSULIN LISPRO 100 UNITS/ML, PEN SQ-INSULIN SCH ×6 (00:11→21:31)
[2017-06-08 00:49] VITALS: BP 90/47
[2017-06-08] MEDS: LEVOTHYROXINE 50 MCG TABLET PO SCH (05:16)
[2017-06-08 05:30] LABS: MEAN CORPUSCULAR HEMOGLOBIN 24.9 pg (27.0-34.8); MEAN CORPUSCULAR HGB CONC 32.3 g/dL (32.4-35.8); MEAN PLATELET VOLUME 8.2 fL (7.4-10.4); PLATELET COUNT 120 x10^3/uL (130-400); RED BLOOD COUNT 3.85 x10^6/uL (3.82-5.3); RED CELL DISTRIBUTION WIDTH 32.6 % (9.6-15.2)
[2017-06-08 05:38] LABS: CHLORIDE 107 mmol/L (98-107)
[2017-06-08 05:45] LABS: ALANINE AMINOTRANSFERASE 23 U/L (12-78); ALBUMIN 1.8 g/dL (3.4-5.0); ALKALINE PHOSPHATASE 93 U/L (45-117); ANION GAP 6 mmol/L (5-15); BILIRUBIN,TOTAL 1.8 mg/dL (0.2-1.0); CALCIUM 7.3 mg/dL (8.5-10.1); CREATININE 0.57 mg/dL (0.55-1.02)
[2017-06-08 06:09] LABS: BASOPHILS % (AUTO) 0 % (0-1); EOSINOPHILS % (AUTO) 0 % (1-7); LYMPHOCYTES # (AUTO) 0.51 x10^3/uL (1-3.4); LYMPHOCYTES % (AUTO) 17 % (22-44); MD SCAN; MONOCYTES # (AUTO) 0.43 x10^3/uL (0.2-0.8); MONOCYTES % (AUTO) 14 % (2-9); NEUTROPHILS # (AUTO) 2.11 x10^3/uL (1.8-6.8); NEUTROPHILS % (AUTO) 69 % (42-75)
[2017-06-08 07:13] VITALS: BP 97/58
[2017-06-08] MEDS ORDERED: MAGNESIUM SULFATE 6 GM in SODIUM CHLORIDE 0.9% 150 ML IV ONE (09:00)
[2017-06-08] MEDS: INSULIN GLARGINE 100 UNITS/ML, PEN SQ-INSULIN SCH ×2 (09:50→21:31)
[2017-06-08] MEDS: DOXYCYCLINE 100MG TABLET PO SCH ×2 (09:51→21:20)
[2017-06-08] MEDS: POTASSIUM CHLORIDE 20 MEQ TAB.ER.PRT PO SCH (09:51)
[2017-06-08] MEDS: RIFAXIMIN 550 MG TABLET PO SCH ×2 (09:51→21:19)
[2017-06-08] MEDS: FUROSEMIDE 40 MG TABLET PO SCH (09:51)
[2017-06-08] MEDS: ZINC SULFATE 220 MG CAPSULE PO SCH (09:51)
[2017-06-08] MEDS: SPIRONOLACTONE 50 MG TABLET PO SCH ×2 (09:52→21:18)
[2017-06-08] MEDS: FERROUS SULFATE 325 MG TABLET PO SCH ×3 (09:52→21:18)
[2017-06-08] MEDS: POTASSIUM PHOSPHATE 44 MEQ in SODIUM CHLORIDE 0.9% 500 ML IV SCH ×2 (09:52→16:18)
[2017-06-08] MEDS: LACTULOSE 20 GM/30 ML UDC PO SCH ×2 (09:52→21:18)
[2017-06-08] MEDS: ONDANSETRON 2MG/ML, 2ML IVPush PRN ×2 (12:22→20:13)
[2017-06-08 13:54] VITALS: BP 104/66
[2017-06-08] MEDS: CEFTRIAXONE 2,000 MG in SODIUM CHLORIDE 0.9% 50 ML IV SCH (16:18)
[2017-06-08] MEDS ORDERED: LIDOCAINE 1%, 20ML ONE (16:21)
[2017-06-08 17:09] LABS: TOTAL PROTEIN 6.3 g/dL (6.4-8.2)
[2017-06-08 19:32] VITALS: BP 104/65
[2017-06-08] MEDS: METOPROLOL SUCCINATE 25 MG TAB.ER.24H PO SCH (21:18)
[2017-06-09 02:49] VITALS: BP 102/66
[2017-06-09] MEDS: LEVOTHYROXINE 50 MCG TABLET PO SCH (05:38)
[2017-06-09 05:47] LABS: CHLORIDE 107 mmol/L (98-107)
[2017-06-09 06:11] LABS: MEAN CORPUSCULAR HEMOGLOBIN 24.9 pg (27.0-34.8); MEAN CORPUSCULAR HGB CONC 32.7 g/dL (32.4-35.8); MEAN CORPUSCULAR VOLUME 76.2 fL (80-100); MEAN PLATELET VOLUME 7.8 fL (7.4-10.4); PLATELET COUNT 135 x10^3/uL (130-400); RED BLOOD COUNT 4.05 x10^6/uL (3.82-5.3)
[2017-06-09 06:15] LABS: ALANINE AMINOTRANSFERASE 25 U/L (12-78); ALBUMIN 1.9 g/dL (3.4-5.0); ALKALINE PHOSPHATASE 97 U/L (45-117); ANION GAP 7 mmol/L (5-15); CALCIUM 7.8 mg/dL (8.5-10.1); TOTAL PROTEIN 5.4 g/dL (6.4-8.2)
[2017-06-09 06:24] LABS: BILIRUBIN,TOTAL 1.9 mg/dL (0.2-1.0)
[2017-06-09 06:42] LABS: BASOPHILS # (AUTO) 0.01 x10^3/uL (0-0.1); BASOPHILS % (AUTO) 0 % (0-1); EOSINOPHILS % (AUTO) 0 % (1-7); LYMPHOCYTES # (AUTO) 0.54 x10^3/uL (1-3.4); LYMPHOCYTES % (AUTO) 13 % (22-44); MD SCAN; MONOCYTES # (AUTO) 0.57 x10^3/uL (0.2-0.8); MONOCYTES % (AUTO) 13 % (2-9); NEUTROPHILS # (AUTO) 3.15 x10^3/uL (1.8-6.8); NEUTROPHILS % (AUTO) 74 % (42-75)
[2017-06-09 07:45] VITALS: BP 97/63
[2017-06-09] MEDS: INSULIN LISPRO 100 UNITS/ML, PEN SQ-INSULIN SCH ×2 (08:14→11:00)
[2017-06-09 08:20] VITALS: BP 92/55
[2017-06-09] MEDS: ONDANSETRON 2MG/ML, 2ML IVPush PRN ×2 (08:27→22:01)
[2017-06-09] MEDS: INSULIN GLARGINE 100 UNITS/ML, PEN SQ-INSULIN SCH ×3 (09:00→17:32)
[2017-06-09] MEDS: ZINC SULFATE 220 MG CAPSULE PO SCH (09:27)
[2017-06-09] MEDS: SPIRONOLACTONE 50 MG TABLET PO SCH ×2 (09:28→22:23)
[2017-06-09] MEDS: RIFAXIMIN 550 MG TABLET PO SCH ×2 (09:28→22:23)
[2017-06-09] MEDS: FERROUS SULFATE 325 MG TABLET PO SCH ×3 (09:28→22:23)
[2017-06-09] MEDS: POTASSIUM CHLORIDE 20 MEQ TAB.ER.PRT PO SCH (09:28)
[2017-06-09] MEDS: FUROSEMIDE 40 MG TABLET PO SCH (09:28)
[2017-06-09] MEDS: DOXYCYCLINE 100MG TABLET PO SCH ×2 (09:28→22:23)
[2017-06-09] MEDS: LACTULOSE 20 GM/30 ML UDC PO SCH ×2 (09:28→22:22)
[2017-06-09] MEDS ORDERED: INSULIN GLARGINE 100 UNITS/ML, PEN SQ-INSULIN ONE (12:30)
[2017-06-09 13:05] VITALS: BP 98/62
[2017-06-09] MEDS: CEFTRIAXONE 2,000 MG in SODIUM CHLORIDE 0.9% 50 ML IV SCH (15:43)
[2017-06-09] MEDS ORDERED: INSULIN LISPRO 100 UNITS/ML, PEN SQ-INSULIN ONE (17:30)
[2017-06-09 20:00] VITALS: BP 91/49
[2017-06-09] MEDS: METOPROLOL SUCCINATE 25 MG TAB.ER.24H PO SCH (22:22)
[2017-06-09 23:59] VITALS: BP 95/49
[2017-06-10 02:00] VITALS: BP 98/55
[2017-06-10 05:36] LABS: CHLORIDE 103 mmol/L (98-107)
[2017-06-10 05:45] LABS: ALANINE AMINOTRANSFERASE 23 U/L (12-78); ALBUMIN 1.9 g/dL (3.4-5.0); ALKALINE PHOSPHATASE 108 U/L (45-117); ANION GAP 7 mmol/L (5-15); CREATININE 0.77 mg/dL (0.55-1.02); TOTAL PROTEIN 5.5 g/dL (6.4-8.2)
[2017-06-10] MEDS: LEVOTHYROXINE 50 MCG TABLET PO SCH (05:59)
[2017-06-10] MEDS: FERROUS SULFATE 325 MG TABLET PO SCH ×3 (08:42→22:27)
[2017-06-10] MEDS: SPIRONOLACTONE 50 MG TABLET PO SCH ×2 (08:42→22:27)
[2017-06-10] MEDS: POTASSIUM CHLORIDE 20 MEQ TAB.ER.PRT PO SCH (08:42)
[2017-06-10] MEDS: RIFAXIMIN 550 MG TABLET PO SCH ×2 (08:42→22:27)
[2017-06-10] MEDS: DOXYCYCLINE 100MG TABLET PO SCH ×2 (08:42→22:27)
[2017-06-10] MEDS: ZINC SULFATE 220 MG CAPSULE PO SCH (08:42)
[2017-06-10] MEDS: INSULIN GLARGINE 100 UNITS/ML, PEN SQ-INSULIN SCH ×2 (08:43→22:26)
[2017-06-10] MEDS: FUROSEMIDE 40 MG TABLET PO SCH (08:43)
[2017-06-10] MEDS: LACTULOSE 20 GM/30 ML UDC PO SCH ×2 (08:43→22:24)
[2017-06-10 10:01] VITALS: BP 102/55
[2017-06-10] MEDS ORDERED: INSULIN GLARGINE 100 UNITS/ML, PEN SQ-INSULIN ONE (12:30)
[2017-06-10] MEDS ORDERED: INSULIN LISPRO 100 UNITS/ML, PEN SQ-INSULIN ONE ×2 (12:30→17:30)
[2017-06-10 14:09] VITALS: BP 89/46
[2017-06-10] MEDS: CEFTRIAXONE 2,000 MG in SODIUM CHLORIDE 0.9% 50 ML IV SCH (15:16)
[2017-06-10 18:48] VITALS: BP 100/61
[2017-06-10] MEDS: METOPROLOL SUCCINATE 25 MG TAB.ER.24H PO SCH (22:27)
[2017-06-11 02:01] VITALS: BP 93/53
[2017-06-11] MEDS: LEVOTHYROXINE 50 MCG TABLET PO SCH (06:29)
[2017-06-11 07:51] VITALS: BP 93/57
[2017-06-11] MEDS ORDERED: INSULIN LISPRO 100 UNITS/ML, PEN SQ-INSULIN ONE (08:00)
[2017-06-11] MEDS: RIFAXIMIN 550 MG TABLET PO SCH (08:28)
[2017-06-11] MEDS: DOXYCYCLINE 100MG TABLET PO SCH (08:28)
[2017-06-11] MEDS: FERROUS SULFATE 325 MG TABLET PO SCH ×2 (08:28→16:34)
[2017-06-11] MEDS: POTASSIUM CHLORIDE 20 MEQ TAB.ER.PRT PO SCH (08:28)
[2017-06-11] MEDS: SPIRONOLACTONE 50 MG TABLET PO SCH (08:28)
[2017-06-11] MEDS: ZINC SULFATE 220 MG CAPSULE PO SCH (08:28)
[2017-06-11] MEDS: INSULIN GLARGINE 100 UNITS/ML, PEN SQ-INSULIN SCH (08:29)
[2017-06-11] MEDS: LACTULOSE 20 GM/30 ML UDC PO SCH (08:29)
[2017-06-11] MEDS: FUROSEMIDE 40 MG TABLET PO SCH (08:29)
[2017-06-11] MEDS ORDERED: INSULIN LISPRO 100 UNITS/ML, PEN SQ-INSULIN SCH ×2 (12:00→17:00)
[2017-06-11 13:33] VITALS: BP 92/52
[2017-06-11] MEDS ORDERED: CEFTRIAXONE PMX 2GM/50ML 50 ML IV SCH (16:00)
[2017-06-11] MEDS ORDERED: CEFD300C37 PO (16:46)
[2017-06-11] MEDS ORDERED: INSU100I28 SQ-INSULIN (16:46)
[2017-06-11] MEDS ORDERED: DOXY100C15 PO (16:46)
[2017-06-11] MEDS ORDERED: INSULIN GLARGINE 100 UNITS/ML, PEN SQ-INSULIN SCH ×2 (17:00)
== END 2017-06-11 18:29 | disposition home health service (06) | DRG 871 ==
LOC: ED 10:28 → EDIP 11:32 → 4EST 12:57 → CCU 23:56 → 5SO 06-05 23:04 → 4WST 06-09 23:44
PROVIDERS: ADMIT Hospitalist; ATTEND Hospitalist
PROC: 0T9B70Z Drainage of Bladder with Drainage Device, Via Natural or Artificial Opening (ICD-10-PCS; principal; 2017-06-03)
PROC: 0W993ZZ Drainage of Right Pleural Cavity, Percutaneous Approach (ICD-10-PCS; 2017-06-08)
DX: A41.9 Sepsis, unspecified organism (principal); E43 Unspecified severe protein-calorie malnutrition; J96.01 Acute respiratory failure with hypoxia; I50.31 Acute diastolic (congestive) heart failure; J15.9 Unspecified bacterial pneumonia; J90 Pleural effusion, not elsewhere classified; E11.22 Type 2 diabetes mellitus with diabetic chronic kidney disease; E83.39 Other disorders of phosphorus metabolism; I08.1 Rheumatic disorders of both mitral and tricuspid valves; N17.9 Acute kidney failure, unspecified; E87.0 Hyperosmolality and hypernatremia; K76.6 Portal hypertension; E87.1 Hypo-osmolality and hyponatremia; J98.11 Atelectasis; S62.165A Nondisplaced fracture of pisiform, left wrist, initial encounter for closed fracture; N18.3 Chronic kidney disease, stage 3 (moderate); E11.65 Type 2 diabetes mellitus with hyperglycemia; K72.90 Hepatic failure, unspecified without coma; I48.91 Unspecified atrial fibrillation; D50.9 Iron deficiency anemia, unspecified; E03.9 Hypothyroidism, unspecified; E83.42 Hypomagnesemia; E87.6 Hypokalemia; W18.39XA Other fall on same level, initial encounter; K70.30 Alcoholic cirrhosis of liver without ascites; K80.20 Calculus of gallbladder without cholecystitis without obstruction; R65.20 Severe sepsis without septic shock; Z90.710 Acquired absence of both cervix and uterus; Z68.23 Body mass index [BMI] 23.0-23.9, adult; Z98.51 Tubal ligation status; Y93.89 Activity, other specified; Y92.098 Other place in other non-institutional residence as the place of occurrence of the external cause; Y99.8 Other external cause status; Z79.4 Long term (current) use of insulin
CPT/HCPCS: 32555; 36415; 70450; 71045; 71275; 74177; 80048; 80053; 80307; 80329; 81003; 82010; 82040; 82140; 82728; 82945; 82947; 82962; 83540; 83550; 83605; 83615; 83735; 83880; 84100; 84145; 84155; 84157; 84443; 84484; 85025; 85610; 85730; 87040; 87070; 87081; 87205; 88112; 88305; 89051; 93005; 93306; J0456; J0696; J1815; J1940; J1956; J2310; J2405; J3475; J3490; P9047; Q9967; G0260; G0480; J2060; J2270; J7030; J7040; J7050; Q0177

== ENCOUNTER 2017-06-25 11:06 | Inpatient (IN) | payer OTHER ==
[~2017-06-25] VITALS: Ht 170.2 cm; Wt 95.0 kg
[~2017-06-25 11:06] MED LIST changes: +CEFD300C37 PO; +DOXY100C15 PO
[2017-06-25] MEDS ORDERED: SODIUM CHLORIDE 0.9% 1,000ML IVBOLUS ONE ×2 (11:30→13:30)
[2017-06-25] MEDS ORDERED: SODIUM CHLORIDE FLUSH 10ML SYR IVF ONE (11:30)
[2017-06-25 12:12] LABS: INTERNATIONAL NORMALIZED RATIO 1.4 (0.93-1.1); PROTHROMBIN TIME 14.3 Seconds (9.6-11.5)
[2017-06-25 12:17] LABS: ALBUMIN 2.3 g/dL (3.4-5.0); ANION GAP 14 mmol/L (5-15); CALCIUM 8.4 mg/dL (8.5-10.1); CHLORIDE 93 mmol/L (98-107)
[2017-06-25 12:20] LABS: ALANINE AMINOTRANSFERASE 22 U/L (12-78); ALKALINE PHOSPHATASE 132 U/L (45-117); BILIRUBIN,TOTAL 3.4 mg/dL (0.2-1.0); CREATININE 1.41 mg/dL (0.55-1.02); TOTAL PROTEIN 6.7 g/dL (6.4-8.2)
[2017-06-25 12:34] LABS: MEAN CORPUSCULAR HEMOGLOBIN 26.6 pg (27.0-34.8); MEAN CORPUSCULAR HGB CONC 32.5 g/dL (32.4-35.8); MEAN CORPUSCULAR VOLUME 81.7 fL (80-100); MEAN PLATELET VOLUME 9.2 fL (7.4-10.4); PLATELET COUNT 146 x10^3/uL (130-400); RED BLOOD COUNT 4.03 x10^6/uL (3.82-5.3); RED CELL DISTRIBUTION WIDTH 30.5 % (9.6-15.2)
[2017-06-25 12:39] LABS: BASOPHILS # (AUTO) 0.01 x10^3/uL (0-0.1); BASOPHILS % (AUTO) 0 % (0-1); EOSINOPHILS % (AUTO) 0 % (1-7); LYMPHOCYTES # (AUTO) 0.21 x10^3/uL (1-3.4); LYMPHOCYTES % (AUTO) 5 % (22-44); MD MORPH REVIEW ONLY; MONOCYTES # (AUTO) 0.53 x10^3/uL (0.2-0.8); MONOCYTES % (AUTO) 13 % (2-9); NEUTROPHILS # (AUTO) 3.46 x10^3/uL (1.8-6.8); NEUTROPHILS % (AUTO) 82 % (42-75)
[2017-06-25 12:41] LABS: ANISOCYTOSIS 2+
[2017-06-25 12:42] LABS: HYPOCHROMIA 1+; MICROCYTOSIS 2+; OVALOCYTES 1+; POLYCHROMASIA 1+; SCHISTOCYTES 1+
[2017-06-25 12:43] LABS: <PLATELET ESTIMATE> ADEQUATE; <PLT MORPHOLOGY> NORMAL PLT MORPH; TEAR DROPS 1+
[2017-06-25 13:02] LABS: PH, VENOUS 7.417 pH (7.320-7.420)
[2017-06-25 13:09] LABS: MICROSCOPIC NOT IND
[2017-06-25 13:13] LABS: ACETONE, SERUM Negative (Negative)
[2017-06-25 13:18] LABS: CULTURE INDICATED? NO
[2017-06-25] MEDS ORDERED: OXYcodone IR 5MG TABLET PO PRN (15:30)
[2017-06-25] MEDS ORDERED: ONDANSETRON ODT 4 MG PO PRN (16:00)
[2017-06-25] MEDS ORDERED: ONDANSETRON 2MG/ML, 2ML IVPush PRN (16:00)
[2017-06-25] MEDS ORDERED: hydrALAzine 20 MG/ML, 1ML IVPush PRN (16:00)
[2017-06-25 16:26] LABS: FREE T4 (FREE THYROXINE) 1.4 ng/dL (0.76-1.46); THYROID STIMULATING HORMONE 1.5 mIU/L (0.358-3.740)
[2017-06-25 16:53] LABS: HCT (SEDRATE) 32.9 % (34.6-47.8)
[2017-06-25] MEDS: LACTULOSE 20 GM/30 ML UDC PO SCH ×2 (17:56→20:35)
[2017-06-25] MEDS: FERROUS SULFATE 325 MG TABLET PO SCH ×2 (17:56→20:32)
[2017-06-25] MEDS: SODIUM CHLORIDE 0.9% 1,000 ML IV SCH (17:57)
[2017-06-25] MEDS: INSULIN LISPRO 100 UNITS/ML, PEN SQ-INSULIN SCH ×2 (18:21→20:33)
[2017-06-25 18:37] VITALS: BP 97/52
[2017-06-25] MEDS: HYDROcodone/APAP 5/325 TABLET PO PRN (19:19)
[2017-06-25 20:00] VITALS: BP 94/51
[2017-06-25] MEDS ORDERED: SODIUM CHLORIDE 0.9%, 250ML IVBOLUS ONE (20:30)
[2017-06-25] MEDS: RIFAXIMIN 550 MG TABLET PO SCH (20:32)
[2017-06-25] MEDS: INSULIN GLARGINE 100 UNITS/ML, PEN SQ-INSULIN SCH (20:34)
[2017-06-25] MEDS ORDERED: INSULIN GLARGINE 100 UNITS/ML, PEN SQ-INSULIN SCH (21:00)
[2017-06-25 21:01] LABS: CLOSTRIDIUM DIFFICILE ANTIGEN NEGATIVE; CLOSTRIDIUM DIFFICILE TOXIN NEGATIVE (Negative)
[2017-06-25] MEDS: TRAZODONE 50MG TABLET PO PRN (22:55)
[2017-06-26] MEDS: SODIUM CHLORIDE 0.9% 1,000 ML IV SCH ×2 (00:16→15:46)
[2017-06-26 00:51] VITALS: BP 94/45
[2017-06-26] MEDS: LACTULOSE 20 GM/30 ML UDC PO SCH ×4 (05:49→21:17)
[2017-06-26] MEDS: LEVOTHYROXINE 50 MCG TABLET PO SCH (05:49)
[2017-06-26 06:10] LABS: MEAN CORPUSCULAR HEMOGLOBIN 27.4 pg (27.0-34.8); MEAN PLATELET VOLUME 8.4 fL (7.4-10.4); PLATELET COUNT 109 x10^3/uL (130-400); RED BLOOD COUNT 3.42 x10^6/uL (3.82-5.3); RED CELL DISTRIBUTION WIDTH 30.7 % (9.6-15.2)
[2017-06-26 06:14] LABS: CHLORIDE 105 mmol/L (98-107)
[2017-06-26 06:37] LABS: ANION GAP 10 mmol/L (5-15); CALCIUM 7.7 mg/dL (8.5-10.1); CREATININE 0.85 mg/dL (0.55-1.02)
[2017-06-26 06:39] LABS: BASOPHILS # (AUTO) 0.01 x10^3/uL (0-0.1); BASOPHILS % (AUTO) 1 % (0-1); EOSINOPHILS % (AUTO) 0 % (1-7); LYMPHOCYTES # (AUTO) 0.48 x10^3/uL (1-3.4); LYMPHOCYTES % (AUTO) 20 % (22-44); MD MORPH REVIEW ONLY; MONOCYTES # (AUTO) 0.25 x10^3/uL (0.2-0.8); MONOCYTES % (AUTO) 10 % (2-9); NEUTROPHILS # (AUTO) 1.69 x10^3/uL (1.8-6.8); NEUTROPHILS % (AUTO) 70 % (42-75)
[2017-06-26 06:40] LABS: ANISOCYTOSIS 2+; HYPOCHROMIA 1+; OVALOCYTES 1+; POLYCHROMASIA 1+
[2017-06-26 06:41] LABS: <PLATELET ESTIMATE> ADEQUATE; <PLT MORPHOLOGY> NORMAL PLT MORPH
[2017-06-26 07:37] VITALS: BP 93/52
[2017-06-26] MEDS: INSULIN LISPRO 100 UNITS/ML, PEN SQ-INSULIN SCH ×4 (08:05→21:18)
[2017-06-26] MEDS: INSULIN GLARGINE 100 UNITS/ML, PEN SQ-INSULIN SCH ×2 (08:05→21:19)
[2017-06-26] MEDS: FAMOTIDINE 20 MG TABLET PO SCH (08:07)
[2017-06-26] MEDS: FERROUS SULFATE 325 MG TABLET PO SCH ×3 (08:07→21:17)
[2017-06-26] MEDS: ZINC SULFATE 220 MG CAPSULE PO SCH (08:07)
[2017-06-26] MEDS: RIFAXIMIN 550 MG TABLET PO SCH ×2 (08:07→21:17)
[2017-06-26 14:14] VITALS: BP 102/69
[2017-06-26 18:35] VITALS: BP 101/63
[2017-06-26] MEDS: TRAZODONE 50MG TABLET PO PRN (21:17)
[2017-06-27 01:19] VITALS: BP 109/64
[2017-06-27 05:44] LABS: MEAN CORPUSCULAR HEMOGLOBIN 27.1 pg (27.0-34.8); MEAN CORPUSCULAR HGB CONC 32.6 g/dL (32.4-35.8); MEAN PLATELET VOLUME 8.8 fL (7.4-10.4); PLATELET COUNT 97 x10^3/uL (130-400); RED BLOOD COUNT 3.37 x10^6/uL (3.82-5.3); RED CELL DISTRIBUTION WIDTH 29.5 % (9.6-15.2)
[2017-06-27 05:51] LABS: ANION GAP 10 mmol/L (5-15); CALCIUM 7.7 mg/dL (8.5-10.1); CHLORIDE 112 mmol/L (98-107); CREATININE 0.64 mg/dL (0.55-1.02)
[2017-06-27] MEDS: LEVOTHYROXINE 50 MCG TABLET PO SCH (06:01)
[2017-06-27] MEDS: LACTULOSE 20 GM/30 ML UDC PO SCH ×4 (06:01→20:36)
[2017-06-27 06:40] VITALS: BP 99/65
[2017-06-27 06:53] LABS: MD YES
[2017-06-27 07:00] LABS: BASOS#(MANUAL) 0.02 x10^3/uL (0-0.1); BASOS% (MANUAL) 1 % (0-1); EOS#(MANUAL) 0.31 x10^3/uL (0.0-0.4); EOS% (MANUAL) 17 % (1-7); LYMPHS% (MANUAL) 22 % (22-44); MONOS% (MANUAL) 11 % (2-9); NRBC % (MANUAL) 1 % (0-1); REACTIVE LYMPHS # (MANUAL) 0.02 x10^3/uL (0-0); REACTIVE LYMPHS % (MANUAL) 1 % (0-0); SEG#(MANUAL) 0.86 x10^3/uL (1.8-6.8); SEGS% (MANUAL) 48 % (42-75)
[2017-06-27] MEDS: INSULIN LISPRO 100 UNITS/ML, PEN SQ-INSULIN SCH ×4 (07:00→20:35)
[2017-06-27 07:01] LABS: <PLATELET ESTIMATE> DECREASED; <PLT MORPHOLOGY> NORMAL PLT MORPH; ANISOCYTOSIS 2+; HYPOCHROMIA 1+; OVALOCYTES 1+; POLYCHROMASIA 1+
[2017-06-27] MEDS: FAMOTIDINE 20 MG TABLET PO SCH (09:01)
[2017-06-27] MEDS: SODIUM CHLORIDE 0.9% 1,000 ML IV SCH (09:01)
[2017-06-27] MEDS: RIFAXIMIN 550 MG TABLET PO SCH ×2 (09:01→20:34)
[2017-06-27] MEDS: FERROUS SULFATE 325 MG TABLET PO SCH ×3 (09:01→20:34)
[2017-06-27] MEDS: ZINC SULFATE 220 MG CAPSULE PO SCH (09:01)
[2017-06-27] MEDS: INSULIN GLARGINE 100 UNITS/ML, PEN SQ-INSULIN SCH ×2 (10:44→20:36)
[2017-06-27 15:56] VITALS: BP 108/69
[2017-06-27 19:08] VITALS: BP 103/57
[2017-06-27] MEDS: TRAZODONE 50MG TABLET PO PRN (20:34)
[2017-06-28 01:56] VITALS: BP 103/61
[2017-06-28] MEDS: LACTULOSE 20 GM/30 ML UDC PO SCH ×2 (05:48→11:53)
[2017-06-28] MEDS: LEVOTHYROXINE 50 MCG TABLET PO SCH (05:48)
[2017-06-28 06:32] LABS: ANION GAP 9 mmol/L (5-15); CALCIUM 8.3 mg/dL (8.5-10.1); CHLORIDE 114 mmol/L (98-107); CREATININE 0.64 mg/dL (0.55-1.02)
[2017-06-28 06:40] LABS: MEAN CORPUSCULAR HEMOGLOBIN 27.4 pg (27.0-34.8); MEAN CORPUSCULAR HGB CONC 33.1 g/dL (32.4-35.8); MEAN CORPUSCULAR VOLUME 82.7 fL (80-100); MEAN PLATELET VOLUME 9.2 fL (7.4-10.4); PLATELET COUNT 127 x10^3/uL (130-400); RED BLOOD COUNT 3.84 x10^6/uL (3.82-5.3); RED CELL DISTRIBUTION WIDTH 30.3 % (9.6-15.2)
[2017-06-28] MEDS: INSULIN LISPRO 100 UNITS/ML, PEN SQ-INSULIN SCH ×2 (07:00→11:54)
[2017-06-28 07:01] LABS: MD YES
[2017-06-28 07:03] LABS: <PLATELET ESTIMATE> DECREASED; <PLT MORPHOLOGY> NORMAL PLT MORPH; ANISOCYTOSIS 2+; BASOS#(MANUAL) 0.02 x10^3/uL (0-0.1); BASOS% (MANUAL) 1 % (0-1); EOS#(MANUAL) 0.22 x10^3/uL (0.0-0.4); EOS% (MANUAL) 9 % (1-7); LYMPH#(MANUAL) 0.62 x10^3/uL (1-3.4); LYMPHS% (MANUAL) 26 % (22-44); MONOS#(MANUAL) 0.14 x10^3/uL (0.3-2.7); MONOS% (MANUAL) 6 % (2-9); OVALOCYTES 1+; POLYCHROMASIA 1+; SEG#(MANUAL) 1.39 x10^3/uL (1.8-6.8); SEGS% (MANUAL) 58 % (42-75)
[2017-06-28] MEDS ORDERED: PANTOPROZOLE 40MG TABLET PO SCH (07:30)
[2017-06-28 08:17] VITALS: BP 101/61
[2017-06-28] MEDS: ZINC SULFATE 220 MG CAPSULE PO SCH (08:44)
[2017-06-28] MEDS: INSULIN GLARGINE 100 UNITS/ML, PEN SQ-INSULIN SCH (08:44)
[2017-06-28] MEDS: RIFAXIMIN 550 MG TABLET PO SCH (08:44)
[2017-06-28] MEDS: FERROUS SULFATE 325 MG TABLET PO SCH (08:44)
[2017-06-28] MEDS: HYDROcodone/APAP 5/325 TABLET PO PRN (11:53)
[2017-06-28] MEDS ORDERED: RIFA550T4 PO (13:03)
== END 2017-06-28 15:46 | disposition home or self-care (01) | DRG 637 ==
LOC: ED 11:36 → EDIP 13:37 → 4WST 17:13 → DCLOUNGE 06-28 15:39
PROVIDERS: ADMIT Internal Medicine; ATTEND Family Medicine
DX: E11.65 Type 2 diabetes mellitus with hyperglycemia (principal); N17.0 Acute kidney failure with tubular necrosis; D61.818 Other pancytopenia; E87.1 Hypo-osmolality and hyponatremia; E11.22 Type 2 diabetes mellitus with diabetic chronic kidney disease; E03.9 Hypothyroidism, unspecified; E86.1 Hypovolemia; F10.10 Alcohol abuse, uncomplicated; K72.90 Hepatic failure, unspecified without coma; K74.60 Unspecified cirrhosis of liver; N18.9 Chronic kidney disease, unspecified; Z90.710 Acquired absence of both cervix and uterus; Z98.51 Tubal ligation status; Z87.01 Personal history of pneumonia (recurrent)
CPT/HCPCS: 36415; 71045; 80048; 80053; 81003; 82010; 82140; 82803; 82947; 82962; 83690; 84439; 84443; 85025; 85610; 85651; 85730; 87040; 87324; 93005; 96360; 92523-GN; J1815; J7030; J7050

== ENCOUNTER 2017-07-22 16:39 | Inpatient (IN) | payer OTHER ==
[~2017-07-22] VITALS: Ht 170.2 cm; Wt 86.0 kg
[2017-07-22] MEDS ORDERED: SODIUM CHLORIDE 0.9% 1,000ML IVBOLUS ONE (17:30)
[2017-07-22] MEDS ORDERED: SODIUM CHLORIDE FLUSH 10ML SYR IVF ONE (17:30)
[2017-07-22 18:19] LABS: INTERNATIONAL NORMALIZED RATIO 1.49 (0.93-1.1); PROTHROMBIN TIME 15.4 Seconds (9.6-11.5)
[2017-07-22 18:23] LABS: ALBUMIN 2.1 g/dL (3.4-5.0); ANION GAP 12 mmol/L (5-15); CALCIUM 8.5 mg/dL (8.5-10.1); CHLORIDE 100 mmol/L (98-107)
[2017-07-22 18:27] LABS: ALANINE AMINOTRANSFERASE 23 U/L (12-78); ALKALINE PHOSPHATASE 94 U/L (45-117)
[2017-07-22 18:42] LABS: MD YES; MEAN CORPUSCULAR HGB CONC 33.8 g/dL (32.4-35.8); MEAN CORPUSCULAR VOLUME 88.8 fL (80-100); MEAN PLATELET VOLUME 8.9 fL (7.4-10.4); PLATELET COUNT 81 x10^3/uL (130-400); RED BLOOD COUNT 3.78 x10^6/uL (3.82-5.3); RED CELL DISTRIBUTION WIDTH 21.6 % (9.6-15.2)
[2017-07-22 18:45] LABS: BAND#(MANUAL) 1.24 x10^3/uL; BANDS%(MANUAL) 12 % (0-7); LYMPH#(MANUAL) 0.62 x10^3/uL (1-3.4); LYMPHS% (MANUAL) 6 % (22-44); MONOS#(MANUAL) 0.93 x10^3/uL (0.3-2.7); MONOS% (MANUAL) 9 % (2-9); SEG#(MANUAL) 7.52 x10^3/uL (1.8-6.8); SEGS% (MANUAL) 73 % (42-75)
[2017-07-22 18:46] LABS: <PLATELET ESTIMATE> DECREASED; <PLT MORPHOLOGY> NORMAL PLT MORPH; ANISOCYTOSIS 2+; OVALOCYTES 1+; POLYCHROMASIA 1+
[2017-07-22] MEDS ORDERED: NALOXONE 0.4 MG/ML, 1ML IVPush ONE (21:00)
[2017-07-22] MEDS ORDERED: NALOXONE 0.4 MG/ML, 1ML ONE (21:10)
[2017-07-22] MEDS ORDERED: SODIUM CHLORIDE 0.9% 1,000 ML IV SCH (21:37)
[2017-07-22] MEDS ORDERED: DEXTROSE 4 GM TAB.CHEW PO PRN (22:00)
[2017-07-22] MEDS ORDERED: GLUCAGON 1 MG IM PRN (22:00)
[2017-07-22] MEDS ORDERED: ACETAMINOPHEN 325 MG TABLET PO PRN (22:00)
[2017-07-22] MEDS: RIFAXIMIN 550 MG TABLET PO SCH (22:00)
[2017-07-22] MEDS ORDERED: ONDANSETRON 2MG/ML, 2ML IVPush PRN (22:00)
[2017-07-22] MEDS: SODIUM CHLORIDE 0.9% 1,000 ML IV SCH (22:00)
[2017-07-22] MEDS: POTASSIUM CHLORIDE 20 MEQ TAB.ER.PRT PO SCH (22:00)
[2017-07-22] MEDS: HEPARIN 5,000 UNITS/ML, 1ML SQ SCH (22:00)
[2017-07-22] MEDS ORDERED: DEXTROSE 50%, 50ML SYRINGE IVPush PRN (22:00)
[2017-07-22] MEDS ORDERED: OXYcodone IR 5MG TABLET PO PRN (22:00)
[2017-07-22] MEDS ORDERED: HEPARIN 5,000 UNITS/ML, 1ML ONE (22:58)
[2017-07-22] MEDS ORDERED: POTASSIUM CHLORIDE 20 MEQ TAB.ER.PRT ONE (22:58)
[2017-07-22] MEDS ORDERED: SODIUM CHLORIDE 0.9%, 500ML IVBOLUS ONE (23:30)
[2017-07-22 23:40] VITALS: BP 86/38
[2017-07-23] VITALS: BP 86/38
[2017-07-23 00:51] VITALS: BP 92/47
[2017-07-23 02:21] LABS: CLOSTRIDIUM DIFFICILE ANTIGEN NEGATIVE; CLOSTRIDIUM DIFFICILE TOXIN NEGATIVE (Negative)
[2017-07-23 05:19] LABS: MEAN CORPUSCULAR HEMOGLOBIN 31.2 pg (27.0-34.8); MEAN CORPUSCULAR HGB CONC 34.7 g/dL (32.4-35.8); MEAN CORPUSCULAR VOLUME 89.8 fL (80-100); MEAN PLATELET VOLUME 9.4 fL (7.4-10.4); PLATELET COUNT 73 x10^3/uL (130-400); RED BLOOD COUNT 3.31 x10^6/uL (3.82-5.3); RED CELL DISTRIBUTION WIDTH 22.8 % (9.6-15.2)
[2017-07-23 05:22] LABS: ALBUMIN 1.9 g/dL (3.4-5.0); ANION GAP 12 mmol/L (5-15); CALCIUM 7.3 mg/dL (8.5-10.1); CHLORIDE 106 mmol/L (98-107)
[2017-07-23 05:28] LABS: ALANINE AMINOTRANSFERASE 20 U/L (12-78); ALKALINE PHOSPHATASE 71 U/L (45-117); CREATININE 1.71 mg/dL (0.55-1.02); TOTAL PROTEIN 5.4 g/dL (6.4-8.2)
[2017-07-23] MEDS: LEVOTHYROXINE 25 MCG TABLET PO SCH (05:31)
[2017-07-23] MEDS: SODIUM CHLORIDE 0.9% 1,000 ML IV SCH ×3 (05:32→23:54)
[2017-07-23 05:35] VITALS: BP 85/36
[2017-07-23 05:57] LABS: MD YES
[2017-07-23 05:59] LABS: BAND#(MANUAL) 3.69 x10^3/uL; BANDS%(MANUAL) 26 % (0-7); LYMPH#(MANUAL) 0.85 x10^3/uL (1-3.4); LYMPHS% (MANUAL) 6 % (22-44); METAMYELOCYTES# (MANUAL) 0.57 x10^3/uL (0-0); METAMYELOCYTES% (MANUAL) 4 % (0-1); MONOS#(MANUAL) 1.14 x10^3/uL (0.3-2.7); MONOS% (MANUAL) 8 % (2-9); NRBC % (MANUAL) 1 % (0-1); SEG#(MANUAL) 7.95 x10^3/uL (1.8-6.8); SEGS% (MANUAL) 56 % (42-75)
[2017-07-23 06:02] LABS: <PLATELET ESTIMATE> DECREASED; <PLT MORPHOLOGY> NORMAL PLT MORPH; ANISOCYTOSIS 1+; POLYCHROMASIA 1+
[2017-07-23] MEDS: RIFAXIMIN 550 MG TABLET PO SCH ×2 (07:51→20:28)
[2017-07-23] MEDS: POTASSIUM CHLORIDE 20 MEQ TAB.ER.PRT PO SCH (07:52)
[2017-07-23] MEDS: SODIUM CHLORIDE FLUSH 10ML SYR IVF SCH ×2 (07:53→20:29)
[2017-07-23] MEDS: FERROUS SULFATE 325 MG TABLET PO SCH ×3 (07:53→20:28)
[2017-07-23 07:55] VITALS: BP 94/34
[2017-07-23] MEDS ORDERED: SPIRONOLACTONE 50 MG TABLET PO SCH (09:00)
[2017-07-23] MEDS ORDERED: FUROSEMIDE 40 MG TABLET PO SCH (09:00)
[2017-07-23] MEDS ORDERED: MAGNESIUM SULFATE PMX 2GM/50ML 50 ML IV ONE (09:30)
[2017-07-23] MEDS: HEPARIN 5,000 UNITS/ML, 1ML SQ SCH ×2 (10:13→21:33)
[2017-07-23 13:05] VITALS: BP 86/38
[2017-07-23] MEDS ORDERED: KETOROLAC 30 MG/1 ML ONE (13:22)
[2017-07-23] MEDS ORDERED: KETOROLAC 30 MG/1 ML IVPush ONE (13:30)
[2017-07-23 14:22] LABS: ANION GAP 12 mmol/L (5-15); CALCIUM 7.3 mg/dL (8.5-10.1); CHLORIDE 104 mmol/L (98-107); CREATININE 1.77 mg/dL (0.55-1.02)
[2017-07-23] MEDS: INSULIN LISPRO 100 UNITS/ML, PEN SQ-INSULIN SCH ×2 (15:53→20:35)
[2017-07-23 20:28] VITALS: BP 95/52
[2017-07-24 01:09] VITALS: BP 93/46
[2017-07-24 02:01] LABS: CULTURE INDICATED? YES; MICROSCOPIC INDICATED
[2017-07-24 02:10] LABS: AMPHETAMINE SCREEN, URINE Negative (Negative); BARBITURATE SCREEN, URINE Negative (Negative); BENZODIAZEPINE SCREEN, URINE Negative (Negative); CANNABINOID SCREEN, URINE Negative (Negative); COCAINE SCREEN, URINE Negative (Negative); METHADONE SCREEN, URINE Negative (Negative); OPIATE SCREEN, URINE Negative (Negative); POTASSIUM,URINE RANDOM 29 mmol/L; SODIUM,URINE RANDOM 27 mmol/L
[2017-07-24 02:12] LABS: CHLORIDE,URINE RANDOM < 10 mmol/L
[2017-07-24] MEDS: LEVOTHYROXINE 25 MCG TABLET PO SCH (05:31)
[2017-07-24 05:38] LABS: MEAN CORPUSCULAR HEMOGLOBIN 30.4 pg (27.0-34.8); MEAN CORPUSCULAR HGB CONC 33.8 g/dL (32.4-35.8); MEAN CORPUSCULAR VOLUME 89.8 fL (80-100); MEAN PLATELET VOLUME 8.7 fL (7.4-10.4); PLATELET COUNT 77 x10^3/uL (130-400); RED BLOOD COUNT 3.34 x10^6/uL (3.82-5.3); RED CELL DISTRIBUTION WIDTH 22.4 % (9.6-15.2)
[2017-07-24 05:40] LABS: CALCIUM 7.2 mg/dL (8.5-10.1); CHLORIDE 103 mmol/L (98-107)
[2017-07-24 05:43] LABS: ANION GAP 10 mmol/L (5-15); CREATININE 1.38 mg/dL (0.55-1.02)
[2017-07-24 06:48] LABS: MD YES
[2017-07-24 06:49] LABS: BAND#(MANUAL) 0.43 x10^3/uL; BANDS%(MANUAL) 4 % (0-7); EOS#(MANUAL) 0.11 x10^3/uL (0.0-0.4); EOS% (MANUAL) 1 % (1-7); LYMPH#(MANUAL) 0.64 x10^3/uL (1-3.4); LYMPHS% (MANUAL) 6 % (22-44); MONOS#(MANUAL) 0.32 x10^3/uL (0.3-2.7); MONOS% (MANUAL) 3 % (2-9); SEGS% (MANUAL) 86 % (42-75)
[2017-07-24 06:51] LABS: <PLATELET ESTIMATE> DECREASED; <PLT MORPHOLOGY> NORMAL PLT MORPH; ANISOCYTOSIS 1+; OVALOCYTES 1+; POLYCHROMASIA 1+
[2017-07-24 07:38] VITALS: BP 95/58
[2017-07-24] MEDS: INSULIN LISPRO 100 UNITS/ML, PEN SQ-INSULIN SCH ×2 (08:15→12:14)
[2017-07-24] MEDS ORDERED: INSULIN GLARGINE 100 UNITS/ML, PEN SQ-INSULIN SCH (08:30)
[2017-07-24] MEDS: FERROUS SULFATE 325 MG TABLET PO SCH (08:47)
[2017-07-24] MEDS: RIFAXIMIN 550 MG TABLET PO SCH (08:47)
[2017-07-24] MEDS: SODIUM CHLORIDE FLUSH 10ML SYR IVF SCH (09:00)
[2017-07-24] MEDS: HEPARIN 5,000 UNITS/ML, 1ML SQ SCH (09:38)
== END 2017-07-24 12:40 | disposition home or self-care (01) | DRG 441 ==
LOC: ED 18:43 → EDIP 21:37 → 4WST 23:10 → DCLOUNGE 07-24 12:31
PROVIDERS: ADMIT Hospitalist; ATTEND Hospitalist
DX: K72.00 Acute and subacute hepatic failure without coma (principal); E43 Unspecified severe protein-calorie malnutrition; N17.0 Acute kidney failure with tubular necrosis; K76.6 Portal hypertension; K74.60 Unspecified cirrhosis of liver; D50.9 Iron deficiency anemia, unspecified; D63.8 Anemia in other chronic diseases classified elsewhere; E11.9 Type 2 diabetes mellitus without complications; E86.0 Dehydration; E03.9 Hypothyroidism, unspecified; R09.02 Hypoxemia; Z79.4 Long term (current) use of insulin; Z90.710 Acquired absence of both cervix and uterus; Z68.29 Body mass index [BMI] 29.0-29.9, adult
CPT/HCPCS: 36415; 76705; 80048; 80053; 80307; 81001; 82140; 82436; 82570; 82947; 82962; 83735; 84100; 84133; 84300; 85025; 85610; 85730; 87086; 87324; 93005; 96361; 96372; 96374; 96375; J1644; J1885; J2310; J2405; J1815; J3475; J7030; J7040

== ENCOUNTER 2017-10-20 16:01 | Inpatient (IN) | payer OTHER ==
[~2017-10-20] VITALS: Ht 167.6 cm; Wt 62.2 kg
[2017-10-20] MEDS ORDERED: SODIUM CHLORIDE FLUSH 10ML SYR IVF ONE (16:30)
[2017-10-20] MEDS ORDERED: SODIUM CHLORIDE 0.9% 1,000ML IVBOLUS ONE (16:30)
[2017-10-20 16:57] LABS: INTERNATIONAL NORMALIZED RATIO 1.49 (0.93-1.1); PROTHROMBIN TIME 15.2 Seconds (9.6-11.5)
[2017-10-20 17:03] LABS: ALANINE AMINOTRANSFERASE 24 U/L (12-78); ALBUMIN 2.5 g/dL (3.4-5.0); ANION GAP 8 mmol/L (5-15); CALCIUM 8.4 mg/dL (8.5-10.1); CHLORIDE 102 mmol/L (98-107); CREATININE 0.88 mg/dL (0.55-1.02)
[2017-10-20 17:05] LABS: ALKALINE PHOSPHATASE 127 U/L (45-117); BASOPHILS % (AUTO) 0 % (0-1); EOSINOPHILS % (AUTO) 0 % (1-7); LYMPHOCYTES # (AUTO) 0.24 x10^3/uL (1-3.4); LYMPHOCYTES % (AUTO) 4 % (22-44); MD SCAN; MEAN CORPUSCULAR HEMOGLOBIN 33.5 pg (27.0-34.8); MEAN CORPUSCULAR HGB CONC 34.5 g/dL (32.4-35.8); MEAN CORPUSCULAR VOLUME 97.2 fL (80-100); MEAN PLATELET VOLUME 7.7 fL (7.4-10.4); MONOCYTES % (AUTO) 7 % (2-9); NEUTROPHILS # (AUTO) 5.16 x10^3/uL (1.8-6.8); NEUTROPHILS % (AUTO) 89 % (42-75); PLATELET COUNT 93 x10^3/uL (130-400); RED BLOOD COUNT 3.91 x10^6/uL (3.82-5.3); RED CELL DISTRIBUTION WIDTH 14.8 % (9.6-15.2)
[2017-10-20] MEDS ORDERED: SODIUM CHLORIDE FLUSH 10ML SYR IVF PRN (18:00)
[2017-10-20] MEDS ORDERED: MORPHINE SULFATE 4 MG/ML, 1ML IVPush PRN (18:00)
[2017-10-20] MEDS ORDERED: MULT-257 PO (18:52)
[2017-10-20] MEDS ORDERED: INSU100I34 SQ (18:52)
[2017-10-20] MEDS: POTASSIUM CHLORIDE 20 MEQ PACKET PO SCH (19:00)
[2017-10-20] MEDS ORDERED: INSULIN LISPRO 20 UNIT SQ-INSULIN SCH (19:00)
[2017-10-20] MEDS ORDERED: ONDANSETRON 2MG/ML, 2ML IVPush PRN (19:00)
[2017-10-20] MEDS ORDERED: METOCLOPRAMIDE 5 MG/ML, 2ML IVPush PRN (19:00)
[2017-10-20] MEDS ORDERED: INSULIN DETEMIR 30 UNIT SQ-INSULIN SCH (21:00)
[2017-10-20] MEDS: INSULIN LISPRO 100 UNITS/ML, PEN SQ-INSULIN SCH (21:00)
[2017-10-20 21:01] VITALS: BP 95/47
[2017-10-20] MEDS ORDERED: POTASSIUM CHLORIDE 20 MEQ TAB.ER.PRT ONE (22:56)
[2017-10-20] MEDS: POTASSIUM CHLORIDE 20 MEQ in LACTATED RINGERS 1,000 ML IV SCH (23:38)
[2017-10-20] MEDS: LACTULOSE 20 GM/30 ML UDC PO SCH (23:39)
[2017-10-20] MEDS: FERROUS SULFATE 325 MG TABLET PO SCH (23:39)
[2017-10-20] MEDS: RIFAXIMIN 550 MG TABLET PO SCH (23:39)
[2017-10-20] MEDS: morphine SULFATE 10 MG/ML, 1ML IVPush PRN (23:41)
[2017-10-21] MEDS: OXYcodone IR 5MG TABLET PO PRN ×4 (01:28→21:08)
[2017-10-21 02:31] VITALS: BP 107/66
[2017-10-21] MEDS: morphine SULFATE 10 MG/ML, 1ML IVPush PRN ×2 (02:33→05:57)
[2017-10-21 05:14] LABS: MEAN CORPUSCULAR HEMOGLOBIN 33.1 pg (27.0-34.8); MEAN CORPUSCULAR HGB CONC 34.1 g/dL (32.4-35.8); MEAN CORPUSCULAR VOLUME 97.2 fL (80-100); RED BLOOD COUNT 3.19 x10^6/uL (3.82-5.3); RED CELL DISTRIBUTION WIDTH 15.4 % (9.6-15.2)
[2017-10-21 05:21] LABS: CHLORIDE 105 mmol/L (98-107)
[2017-10-21 05:22] LABS: ANION GAP 6 mmol/L (5-15)
[2017-10-21 05:23] LABS: CREATININE 0.76 mg/dL (0.55-1.02)
[2017-10-21] MEDS ORDERED: LEVOTHYROXINE 25 MCG TABLET ONE (05:44)
[2017-10-21] MEDS: LEVOTHYROXINE 50 MCG TABLET PO SCH (05:56)
[2017-10-21] MEDS: LACTULOSE 20 GM/30 ML UDC PO SCH ×4 (05:56→21:08)
[2017-10-21 06:02] LABS: BASOPHILS # (AUTO) 0.02 x10^3/uL (0-0.1); BASOPHILS % (AUTO) 0 % (0-1); EOSINOPHILS # (AUTO) 0.08 x10^3/uL (0-0.4); EOSINOPHILS % (AUTO) 2 % (1-7); LYMPHOCYTES # (AUTO) 0.59 x10^3/uL (1-3.4); LYMPHOCYTES % (AUTO) 13 % (22-44); MD SCAN; MEAN PLATELET VOLUME 7.6 fL (7.4-10.4); MONOCYTES % (AUTO) 13 % (2-9); NEUTROPHILS # (AUTO) 3.38 x10^3/uL (1.8-6.8); NEUTROPHILS % (AUTO) 72 % (42-75); PLATELET COUNT 82 x10^3/uL (130-400)
[2017-10-21 08:00] VITALS: BP 99/60
[2017-10-21] MEDS: FUROSEMIDE 40 MG TABLET PO SCH (08:15)
[2017-10-21] MEDS: RIFAXIMIN 550 MG TABLET PO SCH ×2 (08:15→21:07)
[2017-10-21] MEDS: FERROUS SULFATE 325 MG TABLET PO SCH ×3 (08:15→21:07)
[2017-10-21] MEDS: ZINC SULFATE 220 MG CAPSULE PO SCH (08:15)
[2017-10-21] MEDS: INSULIN LISPRO 100 UNITS/ML, PEN SQ-INSULIN SCH ×4 (08:19→21:08)
[2017-10-21] MEDS: POTASSIUM CHLORIDE 20 MEQ in LACTATED RINGERS 1,000 ML IV SCH (09:17)
[2017-10-21] MEDS: POTASSIUM CHLORIDE 20 MEQ PACKET PO SCH ×2 (09:26→17:06)
[2017-10-21 15:02] VITALS: BP 115/66
[2017-10-21] MEDS ORDERED: MAGNESIUM SULFATE PMX 2GM/50ML 50 ML IV ONE (16:00)
[2017-10-21 16:41] LABS: TROPONIN I < 0.015 ng/mL (0.000-0.045)
[2017-10-21] MEDS ORDERED: POTASSIUM CHLORIDE 20 MEQ in LACTATED RINGERS 1,000 ML IV SCH (18:45)
[2017-10-21 20:32] VITALS: BP 109/62
[2017-10-22] MEDS: morphine SULFATE 10 MG/ML, 1ML IVPush PRN ×2 (02:05→13:47)
[2017-10-22 02:32] VITALS: BP 104/55
[2017-10-22 04:43] LABS: MEAN CORPUSCULAR HEMOGLOBIN 33.4 pg (27.0-34.8); MEAN CORPUSCULAR HGB CONC 34.6 g/dL (32.4-35.8); MEAN CORPUSCULAR VOLUME 96.4 fL (80-100); RED BLOOD COUNT 2.87 x10^6/uL (3.82-5.3)
[2017-10-22 04:55] LABS: ANION GAP 9 mmol/L (5-15); CALCIUM 7.5 mg/dL (8.5-10.1); CHLORIDE 100 mmol/L (98-107)
[2017-10-22 04:56] LABS: CREATININE 0.65 mg/dL (0.55-1.02)
[2017-10-22 05:57] LABS: LYMPHOCYTES % (AUTO) 17 % (22-44); MEAN PLATELET VOLUME 7.5 fL (7.4-10.4); MONOCYTES % (AUTO) 16 % (2-9); NEUTROPHILS % (AUTO) 63 % (42-75); PLATELET COUNT 69 x10^3/uL (130-400)
[2017-10-22 05:58] LABS: BASOPHILS # (AUTO) 0.01 x10^3/uL (0-0.1); BASOPHILS % (AUTO) 0 % (0-1); EOSINOPHILS # (AUTO) 0.13 x10^3/uL (0-0.4); EOSINOPHILS % (AUTO) 3 % (1-7); LYMPHOCYTES # (AUTO) 0.69 x10^3/uL (1-3.4); MD SCAN; MONOCYTES # (AUTO) 0.64 x10^3/uL (0.2-0.8); NEUTROPHILS # (AUTO) 2.52 x10^3/uL (1.8-6.8)
[2017-10-22] MEDS: LACTULOSE 20 GM/30 ML UDC PO SCH ×4 (06:00→20:39)
[2017-10-22] MEDS: LEVOTHYROXINE 50 MCG TABLET PO SCH (06:00)
[2017-10-22 07:04] VITALS: BP 105/64
[2017-10-22] MEDS: INSULIN LISPRO 100 UNITS/ML, PEN SQ-INSULIN SCH ×4 (07:25→20:39)
[2017-10-22] MEDS: ZINC SULFATE 220 MG CAPSULE PO SCH (07:25)
[2017-10-22] MEDS: FERROUS SULFATE 325 MG TABLET PO SCH ×3 (07:25→20:39)
[2017-10-22] MEDS: RIFAXIMIN 550 MG TABLET PO SCH ×2 (07:26→20:39)
[2017-10-22] MEDS: POTASSIUM CHLORIDE 20 MEQ PACKET PO SCH ×2 (07:44→17:45)
[2017-10-22] MEDS: FUROSEMIDE 40 MG TABLET PO SCH (07:44)
[2017-10-22] MEDS: OXYcodone IR 5MG TABLET PO PRN ×3 (10:07→21:06)
[2017-10-22 10:46] VITALS: BP 109/61
[2017-10-22 12:28] VITALS: BP 112/62
[2017-10-22] MEDS: POTASSIUM CHLORIDE 20 MEQ TAB.ER.PRT PO SCH (17:45)
[2017-10-22] MEDS ORDERED: URSO300C27 PO (19:21)
[2017-10-22] MEDS: URSODIOL 300 MG CAPSULE PO SCH (20:39)
[2017-10-22 20:40] VITALS: BP 113/62
[2017-10-23 01:11] VITALS: BP 100/62
[2017-10-23] MEDS: OXYcodone IR 5MG TABLET PO PRN ×4 (03:00→21:06)
[2017-10-23] MEDS: LACTULOSE 20 GM/30 ML UDC PO SCH ×4 (04:56→21:07)
[2017-10-23] MEDS: LEVOTHYROXINE 50 MCG TABLET PO SCH (04:56)
[2017-10-23 07:36] VITALS: BP 100/53
[2017-10-23] MEDS: FERROUS SULFATE 325 MG TABLET PO SCH ×3 (08:31→21:06)
[2017-10-23] MEDS: ZINC SULFATE 220 MG CAPSULE PO SCH (08:31)
[2017-10-23] MEDS: URSODIOL 300 MG CAPSULE PO SCH ×2 (08:31→21:06)
[2017-10-23] MEDS: RIFAXIMIN 550 MG TABLET PO SCH ×2 (08:31→21:06)
[2017-10-23] MEDS: POTASSIUM CHLORIDE 20 MEQ PACKET PO SCH ×2 (08:31→17:41)
[2017-10-23] MEDS: morphine SULFATE 10 MG/ML, 1ML IVPush PRN (08:31)
[2017-10-23] MEDS: FUROSEMIDE 40 MG TABLET PO SCH (08:32)
[2017-10-23] MEDS: POTASSIUM CHLORIDE 20 MEQ TAB.ER.PRT PO SCH (08:32)
[2017-10-23] MEDS ORDERED: OXYcodone 5 MG/5 ML ORAL.SOL UDC ONE (09:49)
[2017-10-23] MEDS: INSULIN LISPRO 100 UNITS/ML, PEN SQ-INSULIN SCH ×4 (09:57→21:07)
[2017-10-23] MEDS: INSULIN GLARGINE 100 UNITS/ML, PEN SQ-INSULIN SCH (09:58)
[2017-10-23] MEDS ORDERED: ONDANSETRON 2MG/ML, 2ML IVPush PRN (13:00)
[2017-10-23 13:33] VITALS: BP 100/59
[2017-10-23] MEDS: FENTANYL PF 100 MCG/2ML IVPush PRN ×2 (13:36→18:37)
[2017-10-23 13:46] LABS: ANION GAP 10 mmol/L (5-15); CALCIUM 8.1 mg/dL (8.5-10.1); CHLORIDE 97 mmol/L (98-107); CREATININE 1.11 mg/dL (0.55-1.02)
[2017-10-23 19:52] VITALS: BP 111/62
[2017-10-24] MEDS: OXYcodone IR 5MG TABLET PO PRN ×4 (00:12→19:56)
[2017-10-24 02:00] VITALS: BP 108/62
[2017-10-24] MEDS: FENTANYL PF 100 MCG/2ML IVPush PRN ×5 (04:27→23:13)
[2017-10-24 05:53] LABS: BASOPHILS # (AUTO) 0.02 x10^3/uL (0-0.1); BASOPHILS % (AUTO) 0 % (0-1); EOSINOPHILS # (AUTO) 0.24 x10^3/uL (0-0.4); EOSINOPHILS % (AUTO) 5 % (1-7); LYMPHOCYTES # (AUTO) 0.75 x10^3/uL (1-3.4); LYMPHOCYTES % (AUTO) 15 % (22-44); MD NO; MEAN CORPUSCULAR HEMOGLOBIN 33.5 pg (27.0-34.8); MEAN CORPUSCULAR HGB CONC 34.7 g/dL (32.4-35.8); MEAN CORPUSCULAR VOLUME 96.6 fL (80-100); MEAN PLATELET VOLUME 6.9 fL (7.4-10.4); MONOCYTES # (AUTO) 0.54 x10^3/uL (0.2-0.8); MONOCYTES % (AUTO) 11 % (2-9); NEUTROPHILS # (AUTO) 3.62 x10^3/uL (1.8-6.8); NEUTROPHILS % (AUTO) 70 % (42-75); PLATELET COUNT 114 x10^3/uL (130-400); RED BLOOD COUNT 3.04 x10^6/uL (3.82-5.3); RED CELL DISTRIBUTION WIDTH 15.5 % (9.6-15.2)
[2017-10-24 06:00] LABS: ALANINE AMINOTRANSFERASE 27 U/L (12-78); ALBUMIN 2.3 g/dL (3.4-5.0); ANION GAP 3 mmol/L (5-15); CALCIUM 8.2 mg/dL (8.5-10.1); CHLORIDE 103 mmol/L (98-107)
[2017-10-24 06:03] LABS: ALKALINE PHOSPHATASE 101 U/L (45-117); BILIRUBIN,TOTAL 4.3 mg/dL (0.2-1.0); CREATININE 0.77 mg/dL (0.55-1.02); TOTAL PROTEIN 6.1 g/dL (6.4-8.2)
[2017-10-24 06:53] VITALS: BP 98/62
[2017-10-24] MEDS: INSULIN LISPRO 100 UNITS/ML, PEN SQ-INSULIN SCH ×4 (07:43→22:30)
[2017-10-24] MEDS: URSODIOL 300 MG CAPSULE PO SCH ×2 (08:52→22:29)
[2017-10-24] MEDS: RIFAXIMIN 550 MG TABLET PO SCH ×2 (08:52→22:29)
[2017-10-24] MEDS: POTASSIUM CHLORIDE 20 MEQ PACKET PO SCH ×2 (08:52→17:06)
[2017-10-24] MEDS: FUROSEMIDE 40 MG TABLET PO SCH (08:53)
[2017-10-24] MEDS: FERROUS SULFATE 325 MG TABLET PO SCH ×3 (08:53→22:29)
[2017-10-24] MEDS: ONDANSETRON ODT 4 MG PO PRN ×3 (08:53→17:06)
[2017-10-24] MEDS: ZINC SULFATE 220 MG CAPSULE PO SCH (08:53)
[2017-10-24] MEDS: LACTULOSE 20 GM/30 ML UDC PO SCH ×4 (08:53→22:29)
[2017-10-24] MEDS: LEVOTHYROXINE 50 MCG TABLET PO SCH (08:53)
[2017-10-24] MEDS: INSULIN GLARGINE 100 UNITS/ML, PEN SQ-INSULIN SCH (09:00)
[2017-10-24] MEDS ORDERED: INSULIN GLARGINE 100 UNITS/ML, PEN SQ-INSULIN ONE (13:00)
[2017-10-24 13:10] VITALS: BP 109/65
[2017-10-24] MEDS ORDERED: OXYcodone 5 MG/5 ML ORAL.SOL UDC ONE (13:24)
[2017-10-24 14:21] VITALS: BP 111/73
[2017-10-24 19:22] VITALS: BP 117/69
[2017-10-24 20:45] VITALS: BP 106/61
[2017-10-25 02:00] VITALS: BP 103/65
[2017-10-25] MEDS: OXYcodone IR 5MG TABLET PO PRN ×4 (02:45→21:18)
[2017-10-25] MEDS: LACTULOSE 20 GM/30 ML UDC PO SCH ×4 (05:12→21:17)
[2017-10-25] MEDS: LEVOTHYROXINE 50 MCG TABLET PO SCH (05:12)
[2017-10-25 06:52] VITALS: BP 100/61
[2017-10-25] MEDS: INSULIN LISPRO 100 UNITS/ML, PEN SQ-INSULIN SCH ×4 (07:00→21:18)
[2017-10-25] MEDS: POTASSIUM CHLORIDE 20 MEQ PACKET PO SCH ×3 (08:00→17:00)
[2017-10-25] MEDS: RIFAXIMIN 550 MG TABLET PO SCH ×2 (09:00→21:18)
[2017-10-25] MEDS: FERROUS SULFATE 325 MG TABLET PO SCH ×3 (09:00→21:18)
[2017-10-25] MEDS: URSODIOL 300 MG CAPSULE PO SCH ×2 (09:00→21:17)
[2017-10-25] MEDS: ZINC SULFATE 220 MG CAPSULE PO SCH (09:00)
[2017-10-25] MEDS: FUROSEMIDE 40 MG TABLET PO SCH (09:00)
[2017-10-25] MEDS ORDERED: OXYC5TAB3 PO (13:46)
[2017-10-25 14:24] VITALS: BP 106/59
[2017-10-25 18:57] VITALS: BP 96/55
[2017-10-25] MEDS: FENTANYL PF 100 MCG/2ML IVPush PRN (23:47)
[2017-10-26 00:46] VITALS: BP 106/62
[2017-10-26] MEDS: OXYcodone IR 5MG TABLET PO PRN ×3 (03:43→15:27)
[2017-10-26] MEDS: LEVOTHYROXINE 50 MCG TABLET PO SCH (05:34)
[2017-10-26] MEDS: LACTULOSE 20 GM/30 ML UDC PO SCH ×2 (05:34→13:00)
[2017-10-26 07:16] VITALS: BP 96/53
[2017-10-26] MEDS: INSULIN LISPRO 100 UNITS/ML, PEN SQ-INSULIN SCH ×2 (08:11→13:01)
[2017-10-26] MEDS: POTASSIUM CHLORIDE 20 MEQ PACKET PO SCH (08:13)
[2017-10-26] MEDS: FUROSEMIDE 40 MG TABLET PO SCH (08:13)
[2017-10-26] MEDS: RIFAXIMIN 550 MG TABLET PO SCH (08:13)
[2017-10-26] MEDS: FERROUS SULFATE 325 MG TABLET PO SCH (08:13)
[2017-10-26] MEDS: URSODIOL 300 MG CAPSULE PO SCH (08:13)
[2017-10-26] MEDS: ZINC SULFATE 220 MG CAPSULE PO SCH (08:13)
[2017-10-26] MEDS ORDERED: INSULIN GLARGINE 100 UNITS/ML, PEN SQ-INSULIN SCH (13:00)
[2017-10-26] MEDS ORDERED: DOCU100C33 PO (15:15)
== END 2017-10-26 15:39 | disposition home health service (06) | DRG 563 ==
LOC: ED 17:11 → EDIP 17:54 → 4NOR 20:05 → 4EST 10-22 10:12 → 4NOR 10-24 20:45
PROVIDERS: ADMIT Internal Medicine; ATTEND Internal Medicine
DX: S42.292A Other displaced fracture of upper end of left humerus, initial encounter for closed fracture (principal); K76.6 Portal hypertension; D69.59 Other secondary thrombocytopenia; E03.9 Hypothyroidism, unspecified; E11.65 Type 2 diabetes mellitus with hyperglycemia; E87.6 Hypokalemia; I95.1 Orthostatic hypotension; K72.90 Hepatic failure, unspecified without coma; K74.60 Unspecified cirrhosis of liver; W18.39XA Other fall on same level, initial encounter; Y93.89 Activity, other specified; Y92.89 Other specified places as the place of occurrence of the external cause; Y99.8 Other external cause status; Z53.9 Procedure and treatment not carried out, unspecified reason; Z76.82 Awaiting organ transplant status; Z79.4 Long term (current) use of insulin; Z82.5 Family history of asthma and other chronic lower respiratory diseases; Z90.710 Acquired absence of both cervix and uterus
CPT/HCPCS: 36415; 70450; 72050; 80048; 80053; 82140; 82947; 82962; 83735; 84100; 84484; 85025; 85610; 85730; 93005; 93306; 93880; 96360; J2405; J3010; J3480; Q0162; J1815; J2270; J2765; J3475; J7030; J7120